=== PATIENT | male | born 1935 | race Caucasian/White ===

== ENCOUNTER → 2019-04-23 13:21 | Outpatient (CLI) | payer OTHER, SELFPAY ==
--- NOTE | 2019-04-23 | DI.ECHO.S_ITS ---
[place] [facility]---------+ [facility] +---------+ : : [address] : : : : [address] : : : : Phone: [phone]+ Echocardiogram Report + + :Name: JIAN PRABHAKAR Study Date: 04/23/2019 Height: 70 in : :[facility] Weight: 137 lb: : Gender: Male BSA: 1.8 m2 : :: 1935 Age: 83 yrs : :Reason For Study: CHRONIC AFIB : : Performed By: Tien Morelos : :Referring: BALWINDER HUGHES : + + Interpretation Summary 1) Normal left ventricular size with low normal function (EF 50-55%). 2) Apical wall motion abnormality may reflect pacemaker activation. 3) Mildly enlarged right ventricle with moderately reduced function. Pacemaker lead visualized in the right ventricle. 4) There is marked biatrial enlargement. Atria are much larger than ventricles. 5) There is severe tricuspid regurgitation. 6) There is mild to moderate mitral regurgitation. 7) There is a small right-sided pleural effusion. 8) No prior Echo available for comparison. Procedure: A two-dimensional transthoracic echocardiogram with color flow and Doppler was performed. The study quality was technically difficult. There is no prior echocardiogram noted for this patient. The patient has a paced rhythm. Left Ventricle: The left ventricle is normal in size. There is normal left ventricular wall thickness. The ejection fraction is estimated to be 50-55%. Apical wall motion abnormality may reflect pacemaker activation. Right Ventricle: The right ventricle is mildly dilated. There is a pacemaker lead in the right ventricle. Right ventricular systolic function is moderately reduced. Atria: There is marked biatrial enlargement. The interatrial septum is intact with no evidence for an atrial septal defect. Mitral Valve: The mitral valve is normal in structure and function. There is mild to moderate mitral regurgitation. Aortic Valve: The aortic valve is trileaflet. The aortic valve opens well. There is no aortic valve stenosis. There is mild aortic regurgitation. Tricuspid Valve: The tricuspid valve is normal in structure and function. There is severe tricuspid regurgitation. The right ventricular systolic pressure is estimated to be at least 37 mmHg based on an estimated right atrial pressure of 15 mm Hg. Pulmonic Valve: The pulmonic valve is normal in structure and function. There is trace pulmonic regurgitation. Great Vessels: The aortic root is normal size. The ascending aorta is at the upper limits of normal in size. The pulmonary artery is normal size. The IVC is dilated (diameter is greater than 2.1 cm) and it collapses less than 50% with a sniff. This suggests a high right atrial pressure of 15 mm Hg. Pericardium/ Pleura There is no pericardial effusion. There is a small right-sided pleural effusion. MMode/2D Measurements & Calculations LVIDd: 5.3 cm LVOT diam: 2.4 cm LVIDs: 3.6 cm Ao root diam: 4.0 cm FS: 31.8 % Aortic Jxn: 3.5 cm EPSS: 0.26 cm asc Aorta Diam: 3.7 cm IVSd: 0.90 cm Ao Arch Diam (Prox Trans): 2.9 cm LVPWd: 1.1 cm LV sotelo. diameter/BSA (cm/m^2): 3.0 LV sys. diameter/BSA (cm/m^2): 2.1 LA dimension: 9.8 cm RA long axis: 13.3 cm LA A2 area: 118.9 cm2 RA area: 137.2 cm2 LA A4 area: 92.8 cm2 RA vol: 1203 ml LA length (vol): 10.8 cm RA : 676.6 ml/m2 LA vol: 869.7 ml IVC diam: 4.3 cm LA vol index: 489.3 ml/m2 RVD1 (basal): 6.0 cm RVD2 (mid): 4.5 cm Doppler Measurements & Calculations Ao V2 max: 99.6 cm/sec LVOT Max Ez: 70.9 cm/sec Ao V2 mean: 72.4 cm/sec LV V1 max P.0 mmHg Ao max P.0 mmHg LV V1 VTI: 13.1 cm Ao mean P.3 mmHg WILMER(I,D): 3.3 cm2 Ao V2 VTI: 17.7 cm WILMER(V,D): 3.2 cm2 sev ratio: 0.74 WILMER indexed to BSA (cm^2/m^2): 1.9 AI P1/2t: 905.5 msec AI dec slope: 97.2 cm/sec2 MV E max ez: 73.5 cm/sec TR max ez: 231.6 cm/sec MV A max ez: 2.5 cm/sec TR max P.5 mmHg MV E/A: 29.9 PA V2 max: 46.7 cm/sec Med Peak E' Ez: 6.3 cm/sec PA V2 mean: 29.6 cm/sec E/E' med: 11.7 PA mean P.40 mmHg Lat Peak E' Ez: 12.3 cm/sec PA pr(Accel): 56.5 mmHg E/E' lat: 6.0 PA Accel Time: 0.06 sec E/e' average: 8.8 MV dec time: 0.13 sec SV(OT): 58.3 ml Reading Physician:04:21 PM
== END ==
PROVIDERS: Visit Provider Internal Medicine Cardiovascular Disease
DX: I08.3 Combined rheumatic disorders of mitral, aortic and tricuspid valves (principal); J90 Pleural effusion, not elsewhere classified; I48.2 Chronic atrial fibrillation; Z95.0 Presence of cardiac pacemaker
CPT/HCPCS: 93306

== ENCOUNTER 2019-06-09 17:18 | Inpatient (IN) | payer MEDICARE, OTHER, SELFPAY ==
[2019-06-09] VITALS (7 sets, daily range): BP systolic 96–115; BP diastolic 44–99; PULSE 51–104; RESP 16–26; TEMP 36.1; O2SAT 93–100
--- NOTE | 2019-06-09 17:31 | DI.RAD.S_ITS ---
PROCEDURE: XR CHEST 1V INDICATIONS: increasing weakness/fatigue TECHNIQUE: One view of the chest was acquired. COMPARISON: [facility], CR, XR CHEST 1 VIEW, 04/24/2019, 11:12. FINDINGS: Surgical changes and devices: A right chest wall pacemaker is redemonstrated with 2 leads projecting over the region of the right ventricle. There are 2 additional curvilinear wires projecting over the left hemithorax which appear similar to the prior study. Lungs and pleura: There is a small to moderate right pleural effusion with right basilar opacities consistent compressive atelectasis or consolidation. There also confluent left basilar opacities likely representing consolidation. No definite pneumothorax. Mediastinum: Mediastinal contours appear unchanged. Marked cardiomegaly is redemonstrated limiting evaluation of the lung bases. Bones and chest wall: No suspicious bony lesions. Overlying soft tissues appear unremarkable. IMPRESSION: 1. Small to moderate right pleural effusion with right basilar compressive atelectasis or consolidation. There is a suspected left basilar consolidation. 2. Marked cardiomegaly redemonstrated. 3. Right pacemaker and leads redemonstrated as well as curvilinear wires projecting over the left hemithorax of indeterminate etiology. Dictated by: Valdo Germain M.D. on 06/09/2019 at 18:33 Approved by: Valdo Germain M.D. on 06/09/2019 at 18:36
[2019-06-09 17:50] LABS: Hemoglobin 9.8 g/dL (13.5-17.5); Mean Corpuscular HGB Conc 32.7 % (30-36); Mean Corpuscular Hemoglobin 31.7 PG (26-34); Mean Corpuscular Volume 96.9 fL (80-100); Red Blood Cell Count 3.08 X10^6/uL (4.5-5.9); Red Cell Distribution Width 16.7 % (11.6-14.8); White Blood Cell Count 7.8 X10^3/uL (4.5-11.0)
[2019-06-09 17:55] LABS: Hematocrit 29.9 % (41-53); Platelet Count 58 X10^3/uL (150-400)
[2019-06-09 18:01] LABS: Alanine Aminotransferase 25 IU/L (21-72); Albumin 3.6 g/dL (3.5-5.0); Albumin Globulin Ratio 1.3 (1.0-2.8); Alkaline Phosphatase 57 U/L (38-126); Aspartate Aminotransferase 46 IU/L (17-59); BUN Creatinine Ratio 31.1 (6-22); Blood Urea Nitrogen 56 mg/dL (9-20); Calcium 8.9 mg/dL (8.4-10.2); Carbon Dioxide 23 mmol/L (22-32); Chloride 108 mmol/L (98-107); Creatine Kinase 195 U/L (55-170); Estimated Glomerular Filt Rate 36.1 mL/min (>60); Globulin 2.8 g/dL (1.7-4.1); Glucose 107 mg/dL (80-110); HEMOLYSIS < 15 (0-50); Potassium 4.7 mmol/L (3.4-5.1); Sodium 143 mmol/L (137-145); Total Protein 6.4 g/dL (6.3-8.2)
[2019-06-09 18:04] LABS: B Type Natriuretic Peptide 247 (<100)
[2019-06-09 18:12] LABS: Troponin I < 0.012 ng/mL (0.01-0.034)
[2019-06-09 18:13] LABS: Neutrophils Absolute Manual 6864 /uL (3000-5900); Total Cells Counted 100
[2019-06-09 18:14] LABS: Anisocytosis 1+; Ovalocytes 1+; Poikilocytosis 2+
--- NOTE | 2019-06-09 18:14 | ED.WEAKNESS ---
HPI - Weakness General Chief complaint: Weakness Stated complaint: Weakness, falls, skin tear R arm Time Seen by Provider: 06/09/19 18:14 Source: patient and EMS Mode of arrival: EMS Limitations: no limitations History of Present Illness HPI Narrative: The patient resides at [facility] , a [facility] [place]. I talked to his son, his son notes the patient seems to be going downhill rapidly.in [place], [place]. He is suffered multiple falls in recent days. He has 2 recent visits, in the last 3 days, at [facility] in [place], [place]. He has known arrhythmia, he has a pacemaker in place. He has history of hypertension, and CHF. I talked with son in [place], his son is POHeidi. His son is aware of the recent 2 visits. He describes his father as becoming progressively weak, seems to be going downhill rapidly.The gentleman has a POLST describing DNR with limited interventions. There will be no CPR or intubation. With recent falls seen at the hospital was admitted overnight for observation and IV hydration. It is felt dehydration contributing to his weakness. He has prior injuries to the left arm dressed at the [facility]. He has new injury to the right arm dressed at the care facility. He complains of left tibia pain. He denies head, neck or back injury. He has no dyspnea or chest pain at rest. He is not coughing. He has no abdominal complaints. He tells me he is too weak to stand. He has trouble sitting in the bed even with assistance. Evaluation at [facility] was extensive. He has undergone a negative head CT. Chest x-ray is consistent with extreme cardiomegaly. He has a pacer in place with multiple cut wires. It was noted that he has an elevated bilirubin. Abdominal ultrasound revealed gallstones, but no cholecystitis. Abdominal CT again displayed cholelithiasis without cholecystitis. It is noted that he has cirrhosis and mild ascites. On the abdominal CT cardiomegaly was again seen. Echo of his heart showed normal left ventricular function, but RV failure. He has no chest pain or dyspnea upon arrival here. He has no abdominal pain. He has no hematemesis her medications he. He has no history of GI bleeding. Related Data Home Medications Medication Instructions Recorded Confirmed acetaminophen 650 mg PO QID PRN 06/09/19 06/09/19 albuterol sulfate 2.5 mg INHALATION PRN PRN 06/09/19 06/09/19 cyanocobalamin (vitamin B-12) 1,000 mcg PO DAILY 06/09/19 06/09/19 [Vitamin B-12] fluoxetine 40 mg PO DAILY 06/09/19 06/09/19 food supplemt, lactose-reduced 1 ea PO TID 06/09/19 06/09/19 [Ensure] furosemide 20 mg PO DAILY 06/09/19 06/09/19 lactulose 10 g PO DAILY 06/09/19 06/09/19 metoprolol tartrate 25 mg PO BID 06/09/19 06/09/19 multivitamin with minerals 1 tab PO DAILY 06/09/19 06/09/19 potassium chloride 10 meq PO DAILY 06/09/19 06/09/19 quetiapine 25 mg PO QPM 06/09/19 06/09/19 tramadol 50 mg PO Q6H PRN 06/09/19 06/09/19 tramadol 100 mg PO Q6H PRN 06/09/19 06/09/19 Allergies Allergy/AdvReac Type Severity Reaction Status Date / Time morphine Allergy Verified 06/09/19 18:00 orange Allergy Verified 06/09/19 18:00 Review of Systems Constitutional Constitutional: Reports as per HPI, Denies chills, Denies fever(s), Reports lethargy and Reports weakness Eyes Eyes: Denies change in vision and Denies loss of vision ENT Ears, Nose, Mouth, and Throat: Denies change in voice, Denies vertigo, Denies dizziness, Denies neck pain, Denies sore throat and Denies throat swelling Cardiovascular Cardiovascular: Denies chest pain, Denies irregular heart rhythm, Denies lightheadedness, Denies palpitations, Denies dyspnea and Denies orthopnea Comments: Pacemaker in place Respiratory Respiratory: Denies cough, Denies dyspnea and Denies wheezing Gastrointestinal Gastrointestinal: Denies abdominal pain, Denies change in bowel habits, Denies diarrhea, Denies nausea and Denies vomiting Comments: No history of GI bleed Musculoskeletal Musculoskeletal: Denies back pain and Denies neck pain Comments: Multiple upper extremity injuries and recent falls. Left tibia pain. Integumentary/Breasts Skin/Breast: Denies pruritus, Denies erythema, Denies rash and Reports wounds (Multiple bruises and skin tears.) Neurologic Neurologic: Denies confusion, Denies vertigo, Denies dizziness, Denies loss of vision and Reports weakness Psychiatric Psychiatric: Denies anxiety, Denies confusion and Denies depression Endocrine Endocrine: Denies palpitations Hematologic/Lymphatic Hematologic/Lymphatic: Denies easy bleeding Allergic/Immunologic Allergic/Immunologic: Denies throat swelling and Denies wheezing [facility] Medical History Afib (Acute) Congestive heart failure (Acute) Hypertension (Acute) Pacemaker (Acute) Right ventricular failure (Acute) Weakness (Acute) Social History (Updated 06/09/19 @ 21:10 by Reginaldo Porter MD) additional social history: Resident at a local assisted living facility, [facility]. Exam Initial Vital Signs Initial Vital Signs: Vital Signs Temperature 96.9 F L 06/09/19 17:21 Pulse Rate 63 06/09/19 17:21 Respiratory Rate 22 06/09/19 17:21 Blood Pressure 115/99 H 06/09/19 17:21 Pulse Oximetry 94 06/09/19 17:21 Const General: No in distress, No anxious and frail appearing Nutritional Appearance: cachectic Orientation: alert, awake, oriented x3 and not confused HENPA Head: normocephalic and atraumatic Face and sinus: face symmetric and no sinus tenderness Mouth: oral mucosae normal and moist mucous membranes Throat: posterior oropharynx normal, tonsils normal and uvula midline Eyes General: appearance normal, both eyes and all related structures Eyelids: eyelids normal Conjunctivae: conjunctivae normal Sclera: sclerae normal Pupils: PERRL EOM: EOM intact bilaterally Neck Neck: supple, No tender and JVD (3 cm) Chest Chest: normal inspection of the chest, No crepitus, No tenderness and pacemaker (Right chest) Resp Effort & Inspection: normal respiratory effort, able to speak in complete sentences, no respiratory distress and no use of accessory muscles Auscultation: clear to auscultation bilaterally, no rales, no rhonchi and no wheezes Cardio Rate: regular rate Rhythm: regular rhythm Heart Sounds: no click, no gallops, no murmurs and no rubs Pulses: normal peripheral pulses GI Inspection: non-distended Palpation: soft, no hepatosplenomegaly, No guarding, No pulsatile mass and No tender Auscultation: normal bowel sounds Rectal Exam: normal sphincter tone, prostate normal and heme negative stool Back/Spine/Pelvis Back: No back tenderness Thoracic/Lumbar Spine: thoracic and lumbar spine normal to inspection Other: Multiple bruises of varying ages at varying sites across the back. No palpable defects or crepitus. Skin Other: Multiple contusions across his torso in both arms. He has multiple dressings on both arms from recent skin tears. Neuro General: alert, oriented x3 and gait normal Speech: speech normal Motor: other (Generalized weakness, no focal weakness.) Extrem General: full ROM, no clubbing, cyanosis or edema, no calf tenderness and edema (2+ bilateral lower extremity edema.) Other: Left proximal tibia tenderness without contusion, abrasion or palpable deformity. Normal dorsalis pedis pulses bilaterally. Course Course Course Narrative: Extensive records have been reviewed. Additional evaluation here is consistent with CHF, and right ventricular failure. Third exam at the came from a recumbent position to, to lying flat. The patient was breathing easily, with O2 sats 96-97% while recumbent. When he went flat he developed immediate difficulty breathing, with tachypnea, and his O2 sats decreased to 84% on room air. The hypoxia resolved when he went back to an upright position. Although his BNP is only mildly elevated, he clearly has right-sided CHF. IV Lasix was given. I discussed the situation with the patient's son, who is POA. He agrees to admission, and manage of the CHF. The patient has a DNR order. I discussed the situation with the hospitalist, FLAVIO Bravo. The patient be admitted, with a social science research assistant consult. Orders Ordered: ED Orders 06/09/19 17:30 B Type Natriuretic Peptide Stat Complete Blood Count MAN DIFF Stat Comprehensive Metabolic Panel Stat Influenza A and B by PCR Rapid Stat Procalcitonin Routine Troponin & CK Cardiac Panel Stat 06/09/19 17:31 XR chest 1V Stat 06/09/19 17:32 EKG-12 Lead Stat 06/09/19 17:33 Ammonia (NH3) Stat 06/09/19 17:38 Partial Thromboplastin Time Stat Prothrombin Time INR Stat 06/09/19 18:40 XR tibia fibula LT 2V Stat 06/09/19 20:37 Urine Microscopic Urgent Discontinued Medications Furosemide (Lasix) 40 mg IV NOW ONE Stop: 06/09/19 20:25 Last Admin: 06/09/19 20:42 Dose: 40 mg Documented by: EMI Vital Signs Vital signs: Vital Signs - 8 hr 06/09/19 17:21 06/09/19 18:00 06/09/19 18:33 Temperature 96.9 F L Pulse Rate 63 97 H 95 H Respiratory Rate 22 18 18 Blood Pressure 115/99 H Blood Pressure [Left Arm] 109/51 L 100/48 L Pulse Oximetry 94 100 100 06/09/19 19:30 06/09/19 20:00 Temperature Pulse Rate 51 L 104 H Respiratory Rate 18 16 Blood Pressure Blood Pressure [Left Arm] 96/44 L 112/50 L Pulse Oximetry 93 93 MDM - Weakness Lab Data Result diagrams: 06/09/19 17:30 06/09/19 17:30 Labs: Lab Results 06/09/19 06/09/19 06/09/19 Range/Units 17:30 17:30 17:30 WBC 7.8 (4.5-11.0) X10^3/uL RBC 3.08 L (4.5-5.9) X10^6/uL Hgb 9.8 L (13.5-17.5) g/dL Hct 29.9 L (41-53) % MCV 96.9 (80-100) fL MCH 31.7 (26-34) PG MCHC 32.7 (30-36) % RDW 16.7 H (11.6-14.8) % Plt Count 58 L (150-400) X10^3/uL Total Counted 100 Seg Neutrophils % 84.0 H (38-70) % Band Neutrophils % 4.0 (3-7) % Lymphocytes % (Manual) 4.0 L (25-45) % Atypical Lymphs % 2.0 H ( - 0) % Monocytes % (Manual) 6.0 (2-11) % Neutrophils # (Manual) 6864 H (5856-0438) /uL RBC Morphology See below Poikilocytosis 2+ H Anisocytosis 1+ H Ovalocytes 1+ H PT (10.1-12.7) SECONDS INR (0.9-1.3) APTT (26.4-36.2) SECONDS Sodium 143 (137-145) mmol/L Potassium 4.7 (3.4-5.1) mmol/L Chloride 108 H (98-107) mmol/L Carbon Dioxide 23 (22-32) mmol/L BUN 56 H (9-20) mg/dL Creatinine 1.80 H (0.66-1.25) mg/dL Estimated GFR 36.1 L (>60) mL/min BUN/Creatinine Ratio 31.1 H (6-22) Glucose 107 (80-110) mg/dL Calcium 8.9 (8.4-10.2) mg/dL Total Bilirubin 5.0 H (0.2-1.3) mg/dL AST 46 (17-59) IU/L ALT 25 (21-72) IU/L Alkaline Phosphatase 57 (38-126) U/L Ammonia (9-30) umol/L Total Creatine Kinase 195 H (55-170) U/L CK-MB (CK-2) 8.08 H (<2.37) ng/mL CK-MB (CK-2) Rel Index 4.1 (1.5-5.0) % Troponin I < 0.012 (0.01-0.034) ng/mL B-Natriuretic Peptide 247 H (<100) Total Protein 6.4 (6.3-8.2) g/dL Albumin 3.6 (3.5-5.0) g/dL Globulin 2.8 (1.7-4.1) g/dL Albumin/Globulin Ratio 1.3 (1.0-2.8) Procalcitonin (<0.5) ng/mL Influenza A & B (PCR) (Negative) 06/09/19 06/09/19 06/09/19 Range/Units 17:30 17:30 17:33 WBC (4.5-11.0) X10^3/uL RBC (4.5-5.9) X10^6/uL Hgb (13.5-17.5) g/dL Hct (41-53) % MCV (80-100) fL MCH (26-34) PG MCHC (30-36) % RDW (11.6-14.8) % Plt Count (150-400) X10^3/uL Total Counted Seg Neutrophils % (38-70) % Band Neutrophils % (3-7) % Lymphocytes % (Manual) (25-45) % Atypical Lymphs % ( - 0) % Monocytes % (Manual) (2-11) % Neutrophils # (Manual) (0711-4289) /uL RBC Morphology Poikilocytosis Anisocytosis Ovalocytes PT (10.1-12.7) SECONDS INR (0.9-1.3) APTT (26.4-36.2) SECONDS Sodium (137-145) mmol/L Potassium (3.4-5.1) mmol/L Chloride (98-107) mmol/L Carbon Dioxide (22-32) mmol/L BUN (9-20) mg/dL Creatinine (0.66-1.25) mg/dL Estimated GFR (>60) mL/min BUN/Creatinine Ratio (6-22) Glucose (80-110) mg/dL Calcium (8.4-10.2) mg/dL Total Bilirubin (0.2-1.3) mg/dL AST (17-59) IU/L ALT (21-72) IU/L Alkaline Phosphatase (38-126) U/L Ammonia 10.0 (9-30) umol/L Total Creatine Kinase (55-170) U/L CK-MB (CK-2) (<2.37) ng/mL CK-MB (CK-2) Rel Index (1.5-5.0) % Troponin I (0.01-0.034) ng/mL B-Natriuretic Peptide (<100) Total Protein (6.3-8.2) g/dL Albumin (3.5-5.0) g/dL Globulin (1.7-4.1) g/dL Albumin/Globulin Ratio (1.0-2.8) Procalcitonin 0.10 (<0.5) ng/mL Influenza A & B (PCR) Negative (Negative) 06/09/19 Range/Units 17:38 WBC (4.5-11.0) X10^3/uL RBC (4.5-5.9) X10^6/uL Hgb (13.5-17.5) g/dL Hct (41-53) % MCV (80-100) fL MCH (26-34) PG MCHC (30-36) % RDW (11.6-14.8) % Plt Count (150-400) X10^3/uL Total Counted Seg Neutrophils % (38-70) % Band Neutrophils % (3-7) % Lymphocytes % (Manual) (25-45) % Atypical Lymphs % ( - 0) % Monocytes % (Manual) (2-11) % Neutrophils # (Manual) (1301-4451) /uL RBC Morphology Poikilocytosis Anisocytosis Ovalocytes PT 17.1 H (10.1-12.7) SECONDS INR 1.5 H (0.9-1.3) APTT 34 (26.4-36.2) SECONDS Sodium (137-145) mmol/L Potassium (3.4-5.1) mmol/L Chloride (98-107) mmol/L Carbon Dioxide (22-32) mmol/L BUN (9-20) mg/dL Creatinine (0.66-1.25) mg/dL Estimated GFR (>60) mL/min BUN/Creatinine Ratio (6-22) Glucose (80-110) mg/dL Calcium (8.4-10.2) mg/dL Total Bilirubin (0.2-1.3) mg/dL AST (17-59) IU/L ALT (21-72) IU/L Alkaline Phosphatase (38-126) U/L Ammonia (9-30) umol/L Total Creatine Kinase (55-170) U/L CK-MB (CK-2) (<2.37) ng/mL CK-MB (CK-2) Rel Index (1.5-5.0) % Troponin I (0.01-0.034) ng/mL B-Natriuretic Peptide (<100) Total Protein (6.3-8.2) g/dL Albumin (3.5-5.0) g/dL Globulin (1.7-4.1) g/dL Albumin/Globulin Ratio (1.0-2.8) Procalcitonin (<0.5) ng/mL Influenza A & B (PCR) (Negative) Imaging Data Chest x-ray: Radiologist's impression: [address] [address] XRay Report Signed Patient: Hedy Lan#: [id number] : 5Acct:[id number] Age/Sex: 84 / MDate of Service: 06/09/19 Loc: ED Accession Number: [id number] Procedure: XR chest 1V Ordering Provider: Kelli Lacey D.O. PROCEDURE: XR CHEST 1V INDICATIONS: increasing weakness/fatigue TECHNIQUE: One view of the chest was acquired. COMPARISON: [facility], CR, XR CHEST 1 VIEW, 04/24/2019, 11:12. FINDINGS: Surgical changes and devices: A right chest wall pacemaker is redemonstrated with 2 leads projecting over the region of the right ventricle. There are 2 additional curvilinear wires projecting over the left hemithorax which appear similar to the prior study. Lungs and pleura: There is a small to moderate right pleural effusion with right basilar opacities consistent compressive atelectasis or consolidation. There also confluent left basilar opacities likely representing consolidation. No definite pneumothorax. Mediastinum: Mediastinal contours appear unchanged. Marked cardiomegaly is redemonstrated limiting evaluation of the lung bases. Bones and chest wall: No suspicious bony lesions. Overlying soft tissues appear unremarkable. IMPRESSION: 1. Small to moderate right pleural effusion with right basilar compressive atelectasis or consolidation. There is a suspected left basilar consolidation. 2. Marked cardiomegaly redemonstrated. 3. Right pacemaker and leads redemonstrated as well as curvilinear wires projecting over the left hemithorax of indeterminate etiology. Dictated by: Valdo Germain M.D. on 06/09/2019 at 18:33 Approved by: Valdo eGrmain M.D. on 06/09/2019 at 18:36 Left tib-fib x-ray:: Radiologist's impression: 45 Reginaldo Porter MD Find Patient Imaging - Edson Lan 84 M 1935 ACTIVITY DATE EXAM STATUS AUTHOR 06/09/19 18:40 Signed Valdo Germain 06/09/19 17:[address] [address] XRay Report Signed Patient: Hedy Lan#: [id number] : 5Acct:[id number] Age/Sex: 84 / MDate of Service: 06/09/19 Loc: ED Accession Number: [id number] Procedure: XR tibia fibula LT 2V Ordering Provider: Reginaldo Porter MD PROCEDURE: XR TIBIA FIBULA RT 2V INDICATIONS: Fall. Left proximal tibia pain. TECHNIQUE: 2 views of the tibia and fibula were acquired. COMPARISON: None. FINDINGS: Bones: No fractures or dislocations. No suspicious bony lesions. Soft tissues: No suspicious soft tissue calcifications or masses. IMPRESSION: 1. No fracture or dislocation. Dictated by: Valdo Germain M.D. on 06/09/2019 at 20:22 Approved by: Valdo Germain M.D. on 06/09/2019 at 20:22 ECG Data Attestation: I personally reviewed and interpreted this ECG as follows: (Paced rhythm rate 59 beats per minute. No acute ST T wave changes. No other significant findings.) Critical Care Time Critical Care Time Critical Care Time: Yes Total Critical Care Time: 40 Attestation: Critical care time included initial evaluation of patient, phone consultation with his son who is POA, review is multiple past records, clinical decision making, and consultation with the admitting hospitalist. Discharge Plan Departure Patient Disposition: Admitted As Inpatient Clinical Impression: Right ventricular failure, Weakness Congestive heart failure Qualifiers: Heart failure type: right-sided Heart failure chronicity: acute on chronic Qualified Code(s): I50.813 - Acute on chronic right heart failure Admit Date/Time: 06/09/19 20:49 Admit Provider: Chester Bravo
[2019-06-09 18:16] LABS: CKMB % Relative Index 4.1 % (1.5-5.0); Creatine Kinase MB 8.08 ng/mL (<2.37)
[2019-06-09 18:27] LABS: Influenza A and B by PCR Rapid Negative (Negative)
--- NOTE | 2019-06-09 18:40 | DI.RAD.S_ITS ---
PROCEDURE: XR TIBIA FIBULA RT 2V INDICATIONS: Fall. Left proximal tibia pain. TECHNIQUE: 2 views of the tibia and fibula were acquired. COMPARISON: None. FINDINGS: Bones: No fractures or dislocations. No suspicious bony lesions. Soft tissues: No suspicious soft tissue calcifications or masses. IMPRESSION: 1. No fracture or dislocation. Dictated by: Valdo Germain M.D. on 06/09/2019 at 20:22 Approved by: Valdo Germain M.D. on 06/09/2019 at 20:22
[2019-06-09 18:52] LABS: INR 1.5 (0.9-1.3); Prothrombin Time 17.1 SECONDS (10.1-12.7)
[2019-06-09 18:54] LABS: PTT Partial Thromboplastin Tim 34 SECONDS (26.4-36.2)
[2019-06-09] MEDS: FUROSEMIDE 40 MG/4 ML VIAL IV (20:42)
[2019-06-09 21:21] LABS: Bacteria Urine None Seen
[2019-06-09 21:31] LABS: Appearance Urine UA CLEAR; Bilirubin Urine UA NEGATIVE (NEGATIVE); Color Urine UA YELLOW; Glucose Urine UA NEGATIVE (Negative); Ketones Urine UA NEGATIVE (NEGATIVE); Leukocyte Esterase Urine UA TRACE (NEGATIVE); Nitrite Urine UA NEGATIVE (Negative); Occult Blood Urine UA NEGATIVE (Negative); Protein Urine UA TRACE (Negative); Specific Gravity Urine UA <=1.005 (1.000-1.035); Urobilinogen Urine UA 0.2 E.U./dL (0.2)
--- NOTE | 2019-06-09 21:32 | PM.HP.1 ---
History of Present Illness History of Present Illness Date Patient Seen: 06/09/19 Time Patient Seen: 20:33 Chief complaint: Weakness, falls, skin tear R arm Narrative: Mr. Edson Lan is an 84-year-old gentleman with a history significant for atrial fibrillation, permanent pacemaker implantation, congestive heart failure, hypertension, liver cirrhosis, dementia, nephrolithiasis and cholelithiasis, depression with anxiety and PTSD and chronic fatigue who presents to the ER for recurrent falls and generalized weakness and inability to stand. The patient was previously seen at [facility] on 06/05/2019 and again on 06/07/2019 for similar complaint. Each time the patient was discharged home having undergone an aggressive investigation including a CT of the head, CT of the abdomen and pelvis, abdominal ultrasound and Doppler studies of the right upper extremity and the right lower extremity to rule out DVT and was subsequently discharged back to [facility]. At the time of exam the patient is somnolent and not able to provide only limited information. He denies headaches or dizziness, neck or back pain. Reports no chest pain or palpitations though he has a history of atrial fibrillation. He tells me has no shortness of breath or cough. He denies complaints of abdominal pain, nausea vomiting. He cannot tell me when he last moved his bowels. At baseline the patient is able to ambulate with a cane or walker and now reports he is unable to stand that his legs give out. On upon arrival to ER patient is found to be afebrile with temperature 96.9?, heart rate of 63 in a paced rhythm, blood pressure 115/99, respiratory rate of 22 saturating 94% on room air. Repeat imaging was not completed at [facility]: -CT head: 06/07/2019 finds no acute intracranial findings, cerebral atrophy and chronic microvascular ischemic changes. -CT of the abdomen and pelvis: 06/07/2019 moderate right small left pleural effusions with cardiomegaly a and severe dilation of the right and left atria, distension of the inferior vena cava and hepatic veins consistent with right heart failure, several stones within the gallbladder without evidence of acute cholecystitis or ductal obstruction, mild ascites, right nephrolithiasis, multiple hyperdense left renal cysts consistent with hemorrhagic excess no bowel obstruction, -US abdomen, right upper quadrant: 06/05/2019 nodular liver with echogenic parenchyma suggestive of cirrhosis measuring 16.9 cm, cholelithiasis without evidence of acute cholecystitis, no biliary dilatation, small ascites. -echocardiogram: 06/06/2019 LV function is described as normal with an EF of 55-60%, severe right ventricular enlargement, severe increased in left atrial volume index, severe right atrial enlargement, severe tricuspid regurgitation, moderately abnormal heart pressures. Laboratory analysis obtained today includes a white count of 7.8, hemoglobin of 9.8, hematocrit of 29.9 and platelets 58. Electrolytes within normal range however has BUN of 56 and creatinine of 1.8 (creatinine 1.7 on evaluation 3 days ago), EGFR is 36.1. His liver functions include a bilirubin of 5.0, AST of 46, ALT of 25 and a P of 57. He had a total CK of 195 with CK-MB of 4.1 with an index of 4.1 and a negative troponin at less than 0.012 and BNP is 247. His PT is 17.1 with an INR 1.5 with an APTT of 34. Stool guaiac is negative for blood. His 12 lead EKG demonstrates paced rhythm and his chest x-ray finds severe cardiomyopathy with right pleural effusion and right basilar opacity possible atelectasis versus consolidation. The a for mention findings are improvement over prior echo completed 04/23/2019 reporting an EF of 50-55%. Dr. Porter notes When he went flat he developed immediate difficulty breathing, with tachypnea, and his O2 sats decreased to 84% on room air. The hypoxia resolved when he went back to an upright position. Additional testing including procalcitonin and urinalysis are ordered and the patient is admitted to the hospital generalized weakness and exacerbation congestive heart failure. Patient History Medical History (Updated 06/09/19 @ 22:32 by FLAVIO Paul) Afib (Acute) Cholelithiasis (Acute) Chronic back pain (Acute) Cirrhosis (Acute) Congestive heart failure (Acute) Dementia (Acute) Depression with anxiety (Acute) Hiatal hernia (Acute) History of pacemaker (Acute) Hypertension (Acute) Nephrolithiasis (Acute) Pacemaker (Acute) PTSD (post-traumatic stress disorder) (Acute) Right ventricular failure (Acute) Weakness (Acute) Surgical History (Updated 06/09/19 @ 22:32 by FLAVIO Paul) History of appendectomy (Acute) History of cardiac catheterization (Acute) History of colonoscopy (Acute) History of repair of hiatal hernia (Acute) Family History Father Cancer Mother No problems noted. Social History (Updated 06/09/19 @ 21:10 by Reginaldo Porter MD) additional social history: Resident at a local assisted living facility, [facility]. Family & Social History Family History Father Cancer Mother No problems noted. Comment: The patient resides in [facility], an assisted living facility. The patient is single. Scant information is available due to patient's somnolence. He is able to indicate his father of cancer and his mother of old age. Smoking: The patient quit smoking in 1956 before which she was smoking 1/4 to 1/2 pack per day. Alcohol: Past alcohol consumption quitting 10 years ago. Substance use: The patient denies use of cannabis or herbal products. Advanced directives: The patient has a POLST form which identifies the patient to be DO NOT RESUSCITATE/DO NOT INTUBATE with limited interventions. The patient's son also named Nilesh Lan holds DPOA Meds Home Medications and Allergies Home Medications Medication Instructions Recorded Confirmed Type acetaminophen 650 mg PO QID PRN 06/09/19 06/09/19 History albuterol sulfate 2.5 mg INHALATION PRN PRN 06/09/19 06/09/19 History cyanocobalamin (vitamin B-12) 1,000 mcg PO DAILY 06/09/19 06/09/19 History [Vitamin B-12] fluoxetine 40 mg PO DAILY 06/09/19 06/09/19 History food supplemt, lactose-reduced 1 ea PO TID 06/09/19 06/09/19 History [Ensure] furosemide 20 mg PO DAILY 06/09/19 06/09/19 History lactulose 10 g PO DAILY 06/09/19 06/09/19 History metoprolol tartrate 25 mg PO BID 06/09/19 06/09/19 History multivitamin with minerals 1 tab PO DAILY 06/09/19 06/09/19 History potassium chloride 10 meq PO DAILY 06/09/19 06/09/19 History quetiapine 25 mg PO QPM 06/09/19 06/09/19 History tramadol 50 mg PO Q6H PRN 06/09/19 06/09/19 History tramadol 100 mg PO Q6H PRN 06/09/19 06/09/19 History Allergies Allergy/AdvReac Type Severity Reaction Status Date / Time morphine Allergy Verified 06/09/19 18:00 orange Allergy Verified 06/09/19 18:00 Review of Systems Review of Systems ROS Unobtainable: All systems reviewed & are unremarkable except as noted in HPI and below and unobtainable due to mental condition (Information limited related to patient's somnolence) Exam Vital Signs (past 8 hours): - 06/09/19 17:21 06/09/19 18:00 06/09/19 18:33 Temperature 96.9 F L Pulse Rate 63 97 H 95 H Respiratory Rate 22 18 18 Blood Pressure 115/99 H Blood Pressure [Left Arm] 109/51 L 100/48 L Pulse Oximetry 94 100 100 06/09/19 19:30 06/09/19 20:00 Temperature Pulse Rate 51 L 104 H Respiratory Rate 18 16 Blood Pressure Blood Pressure [Left Arm] 96/44 L 112/50 L Pulse Oximetry 93 93 Oxygen Delivery Method Room Air Narrative Exam Narrative: GENERAL APPEARANCE: well developed, well nourished, in no acute distress. HEENT: Normocephalic, PERRLA, conjunctiva clear, EOMs intact without nystagmus, no sinus tenderness to percussion, no rhinorrhea, mucous membranes are moist and pink without lesions or exudate. NECK/THYROID: neck supple, no JVD, no carotid bruit, trachea midline. LYMPH NODES: no cervical or supraclavicular lymphadenopathy. SKIN: warm and dry, multiple contusions, skin tear left arm, psoriatic lesions left evangelical, venous stasis dermatitis bilateral lower extremities, no ulcerations or petechiae. HEART: regular rate and rhythm, S1-S2, 3/6 systolic murmur, delayed capillary refill bilateral lower extremities, 1+ edema LUNGS: Diminished breath sounds overall right base, no coarseness crackles or wheezing, no cough present CHEST: Pacemaker left chest, symmetrical movement, shallow respirations no accessory muscle use, no pain to AP and lateral compression. ABDOMEN: Soft, no distention, no abdominal tenderness, no guarding or peritoneal signs, no organomegaly, no flank or suprapubic tenderness, active bowel tones. BACK: Normal curvature, nontender to palpation, no CVA tenderness on percussion EXTREMITIES: moves all extremities, BUE strength is 4/5, BLE strength is 3/5 and symmetrical, no deformities or joint effusions, cold feet, dusky toes. NEUROLOGIC: Patient is somnolent, GCS 13, requires consistent stimulation to remain awake and respond to questions, no sensory deficits identified, hearing grossly normal to speech. PSYCH: Somnolent, will focus on speaker when awake, flat affect, short answer responses Objective Labs Result Diagrams: 06/09/19 17:30 06/09/19 17:30 Labs: Laboratory Results - last 24 hr 06/09/19 06/09/19 06/09/19 17:30 17:30 17:30 WBC 7.8 RBC 3.08 L Hgb 9.8 L Hct 29.9 L MCV 96.9 MCH 31.7 MCHC 32.7 RDW 16.7 H Plt Count 58 L Total Counted 100 Seg Neutrophils % 84.0 H Band Neutrophils % 4.0 Lymphocytes % (Manual) 4.0 L Atypical Lymphs % 2.0 H Monocytes % (Manual) 6.0 Neutrophils # (Manual) 6864 H RBC Morphology See below Poikilocytosis 2+ H Anisocytosis 1+ H Ovalocytes 1+ H PT INR APTT Sodium 143 Potassium 4.7 Chloride 108 H Carbon Dioxide 23 BUN 56 H Creatinine 1.80 H Estimated GFR 36.1 L BUN/Creatinine Ratio 31.1 H Glucose 107 Calcium 8.9 Total Bilirubin 5.0 H AST 46 ALT 25 Alkaline Phosphatase 57 Ammonia Total Creatine Kinase 195 H CK-MB (CK-2) 8.08 H CK-MB (CK-2) Rel Index 4.1 Troponin I < 0.012 B-Natriuretic Peptide 247 H Total Protein 6.4 Albumin 3.6 Globulin 2.8 Albumin/Globulin Ratio 1.3 Procalcitonin Influenza A & B (PCR) 06/09/19 06/09/19 06/09/19 17:30 17:30 17:33 WBC RBC Hgb Hct MCV MCH MCHC RDW Plt Count Total Counted Seg Neutrophils % Band Neutrophils % Lymphocytes % (Manual) Atypical Lymphs % Monocytes % (Manual) Neutrophils # (Manual) RBC Morphology Poikilocytosis Anisocytosis Ovalocytes PT INR APTT Sodium Potassium Chloride Carbon Dioxide BUN Creatinine Estimated GFR BUN/Creatinine Ratio Glucose Calcium Total Bilirubin AST ALT Alkaline Phosphatase Ammonia 10.0 Total Creatine Kinase CK-MB (CK-2) CK-MB (CK-2) Rel Index Troponin I B-Natriuretic Peptide Total Protein Albumin Globulin Albumin/Globulin Ratio Procalcitonin 0.10 Influenza A & B (PCR) Negative 06/09/19 17:38 WBC RBC Hgb Hct MCV MCH MCHC RDW Plt Count Total Counted Seg Neutrophils % Band Neutrophils % Lymphocytes % (Manual) Atypical Lymphs % Monocytes % (Manual) Neutrophils # (Manual) RBC Morphology Poikilocytosis Anisocytosis Ovalocytes PT 17.1 H INR 1.5 H APTT 34 Sodium Potassium Chloride Carbon Dioxide BUN Creatinine Estimated GFR BUN/Creatinine Ratio Glucose Calcium Total Bilirubin AST ALT Alkaline Phosphatase Ammonia Total Creatine Kinase CK-MB (CK-2) CK-MB (CK-2) Rel Index Troponin I B-Natriuretic Peptide Total Protein Albumin Globulin Albumin/Globulin Ratio Procalcitonin Influenza A & B (PCR) Assessment & Plan Assessment & Plan narrative: Mr. Lan is an 84-year-old male in deteriorating health related to end-stage liver disease and congestive heart failure who now presents with hepatic renal syndrome. The patient's son also named Nilesh Lan who holds DPOA had spoken earlier with Dr. Porter is called regarding goals of care. Noted the patient's deconditioned state with protein malnutrition, hypotension in the setting of cirrhosis and renal failure. The son is aware of the patient's rapid decline. Discussed the patient's prognosis is grim and discussed his wishes for treatment. The patient is already designated DNR DNI with limited interventions. This clarified further as IV fluids nutrition and noninvasive ventilation but no vasopressors. Recommended hospice S the patient is unable to return to his prior living setting to which he agrees. 1. End-stage liver disease, cirrhosis, chronic, present on admission, active. -cachectic and protein malnourished, ascites noted on ultrasound with nodular liver with echogenic parenchyma. -patient with elevated bilirubin at 5.0, AST 46, ALT 25 and alkaline phosphatase 57. Ammonia level is 10. Albumin is 3.6. -coagulopathic with an INR 1.5 on no anticoagulants, no evidence of bleeding. -MELD score 23, the patient is referred to hospice for evaluation. -continue lactulose 10 g daily 2. Hepatorenal syndrome, presumed acute, present on admission, active -patient presents with renal failure with a BUN of 56 and creatinine of 1.8, random urine sodium is 9. Creatinine 3 days ago was 1.7 no other values available for comparison. -no infective process, abdomen is nontender with procalcitonin of 0.10, EF 55-60% by echocardiogram with pressures in the 100s to 110s systolic. -only potential nephro toxic drug is furosemide 20 mg daily, necessary for manage of congestive failure. -the patient received 40 mg of Lasix in the ER, with decrease in blood pressure. -Will recheck BMP in the morning 3. Congestive heart failure, chronic, per present on admission, active -on initial presentation the patient had respiratory rate of 22 saturating 94%, at time of exam respiratory rate was 16 saturating 96% on room air. -severe cardiomegaly a with right heart failure noted on imaging studies, unable to aggressively diurese related to BP in the setting of reduced SVR. -patient with significant orthopnea demonstrated in the ER when laid flat for exam and decrease of oxygen saturation 84%, returned back to 90s upon sitting up. -moderate right pleural effusion. -will keep head of bed elevated. -continue Lasix 20 mg twice daily. 4. Atrial fibrillation, chronic, present on admission, stable. -no complaints of chest pain or subjective shortness of breath. -patient has a permanent pacemaker, currently on 100% ventricular paced rhythm. -continue rate control with metoprolol tartrate 25 mg twice daily. 5. Dementia, chronic, present on admission, active -CT finds microvascular ischemic changes consistent with vascular dementia. -patient is somnolent with a GCS of 13, will hold nighttime quetiapine. -continue fluoxetine 40 mg daily. 6. Protein malnourishment, chronic, present on admission. -patient appears cachectic with loss of muscle mass. -no comparison for patient weights. 1+ bilateral lower extremity edema, BMI estimated to be 22.59. -dietitian to consult. 7. Generalized weakness, present on admission, active -presenting complaint of weakness and recurrent falls. -patient reports inability to stand and typically able to ambulate with a cane or walker. -PT and OT to evaluate and treat. The patient is admitted to the hospital due to severity of his symptoms and capacity for self-care, risk for complications and adverse events. The patient is admitted as an inpatient with expected length of stay to be greater than 2 midnights. Scores GCS Marti coma scale eye opening: To sound Marti coma scale verbal response: Confused Pierce coma scale motor response: Obey commands Marti coma scale total score: 13
[2019-06-09 21:36] LABS: Culture Indicated Urine Specimen Cultured; RBC Urine 0-1/HPF (0-5/HPF); WBC Urine 0-1/HPF (0-5/HPF)
[2019-06-09 21:41] LABS: Sodium Urine Random 9 mmol/L (30-90)
[2019-06-09 21:42] LABS: Magnesium 2.3 mg/dL (1.6-2.3)
[2019-06-10] VITALS (9 sets, daily range): BP systolic 102–119; BP diastolic 56–70; PULSE 61–70; RESP 16–20; TEMP 35.9–36.6; O2SAT 91–100; BMI 27.1; BMI 25.9
[2019-06-10] MEDS: ACETAMINOPHEN 325 MG TABLET 650 MG PO (00:58)
[2019-06-10] MEDS: TRAMADOL 50 MG TABLET PO (00:59)
[2019-06-10 05:25] LABS: BUN Creatinine Ratio 29.5 (6-22); Blood Urea Nitrogen 59 mg/dL (9-20); Carbon Dioxide 25 mmol/L (22-32); Chloride 107 mmol/L (98-107); Glucose 105 mg/dL (80-110); HEMOLYSIS < 15 (0-50); Potassium 4.8 mmol/L (3.4-5.1); Sodium 141 mmol/L (137-145)
--- NOTE | 2019-06-10 05:29 | PC.NURSE ---
Addendum entered by Anabelle Quintanilla R.N. 06/10/19 06:54: 0645, pt titrated o2 to 2L NC as desat on room air to 87%, pt con't to deny SOB. HOB remains elevated to 30 degrees. Original Note: Pt arrived to floor at 0030. Mild dementia, A&O x2-3, unaware of date, thought is was 1979. Able to give name, birthdate. Pt reports pain in left leg, xray negative for fracture. Reports chronic pain in back. Rates both 02/16. Ultram 50mg given x1. Pt with altered circulation, ejection fraction of 55%. hx Aib, CHF, pacemaker, HTN, severe tricuspid regurgitation, atrial enlargement. Bilat feet mottled, cool, 1+ bilat feet edema. Denies chest pain. Pt with multiple skin tears, covered with telfa. Mult bruises on body. Pt with recent falls at SNF, my legs give out. Hepatorenal syndrome presenting with renal failure, pt with mild cirrohosis, slight jaundice appearance. Abd with min. distention. Denies abd pain. Denies nausea. Denies SOB, on Cpox, sats 94% room air. Cxray reveals right pl effusion. Pt needs HOB elevtated as pt is orthopniec. Pt with cough while taking sips of water. Giving pills with applesauce. Refused SCDs, provider notified. On Qday lasix, monitor BPs, no UOP overnight, provider aware.
[2019-06-10] MEDS: FLUoxetine 20 MG CAPSULE 40 MG PO (08:40)
[2019-06-10] MEDS: LACTULOSE 20 GM/30 ML SOLUTION 10 GM PO (08:48)
[2019-06-10] MEDS: HEPARIN 5,000 UNIT/ML VIAL 5000 UNIT SUBCUT (08:51)
[2019-06-10 10:34] LABS: Bacteria Urine None Seen
[2019-06-10 10:39] LABS: Appearance Urine UA CLEAR; Bilirubin Urine UA NEGATIVE (NEGATIVE); Color Urine UA YELLOW; Glucose Urine UA NEGATIVE (Negative); Ketones Urine UA NEGATIVE (NEGATIVE); Leukocyte Esterase Urine UA TRACE (NEGATIVE); Nitrite Urine UA NEGATIVE (Negative); Occult Blood Urine UA NEGATIVE (Negative); Protein Urine UA NEGATIVE (Negative); Specific Gravity Urine UA <=1.005 (1.000-1.035); Urobilinogen Urine UA 0.2 E.U./dL (0.2)
--- NOTE | 2019-06-10 10:54 | OT.IP.EVAL ---
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) Weakness (06/09/19) Past Medical History (Last Updated 06/09/19 @ 22:32 by FLAVIO Paul) Afib (Acute) Cholelithiasis (Acute) Chronic back pain (Acute) Cirrhosis (Acute) Congestive heart failure (Acute) Dementia (Acute) Depression with anxiety (Acute) Hiatal hernia (Acute) History of pacemaker (Acute) Hypertension (Acute) Nephrolithiasis (Acute) Pacemaker (Acute) PTSD (post-traumatic stress disorder) (Acute) Right ventricular failure (Acute) Weakness (Acute) Surgical History (Last Updated 06/09/19 @ 22:32 by FLAVIO Paul) History of appendectomy (Acute) History of cardiac catheterization (Acute) History of colonoscopy (Acute) History of repair of hiatal hernia (Acute) Occupational Therapy Inpatient Evaluation/Re-Eval M1 PT/OT-IP Prior Functional Status Start: 06/10/19 12:22 Freq: NEEDED Status: Active Protocol: Document 06/10/19 11:00 AB (Rec: 06/10/19 12:44 AB [id number]) Medical Review Prior Functional Status Medical History Reviewed Yes Communication able to make needs known Mobility and Gait Pt states that he is modified independent with ambulation without AD but occasionally uses either a SPC or a FWW. Self Care Pt states he was indep with eating, grooming, dressing, toileting. Per case managers notes, he had assist with showers, meds. His son assists with finances. Social History Living Arrangements Assisted Living Number of Floors (Floors) One Floor Number of Stairs To Enter/Railing? 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 O2 sats in high 80's to low to mid 90's. Occupational Therapy Visit Comments Patient Comments I just don't have any energy to do anything. OT Pain Assessment FLACC Pain Scale Face Occasional grimace/frown Legs Normal position; relaxed Activity Quiet, moves easily Cry No cry (awake or asleep) Consolability Reassurable with touch FLACC Total 2 Location Left Leg Scale Used see FLACC pain scale M4 OT- IP ADL's Start: 06/10/19 10:09 Freq: Status: Active Protocol: Document 06/10/19 10:54 PJM (Rec: 06/10/19 13:31 PJM [id number]) OT TLX-Ovtd-Crhufyc General Evaluation Self-Feeding Ability Independent Areas Needing Assistance Opening Containers Comments OT Self-Feeding Comments pt states he is vegetarian OT ADL-Grooming General Evaluation Grooming Ability Standby Assistance,Moderate Assistance Areas Needing Assistance Face Washing Comments OT Grooming Comments SBA for face washing, mod assist to brush long hair for thoroughness OT ADL-Oral Care Comments Oral Care Comments pt declined due to fatigue from previous activity OT ADL-Dressing General Eval Upper Body Dressing Ability Moderate Assistance Lower Body Dressing Ability Total Assistance Comments OT Dressing Comments mod assist with gown change due to multiple lines OT ADL-Toileting General Evaluation Toileting Ability Minimal Assistance Devices Toileting Assistive Devices Urinal Comments OT Toileting Comments seated EOB with student RN OT ADL-Bathing Bathing Type Bathing Type Bed Bath General Evaluation Bathing Ability Total Assistance M5 OT- IP IADL's Start: 06/10/19 10:09 Freq: Status: Active Protocol: Document 06/10/19 10:54 PJM (Rec: 06/10/19 13:31 [facility] [id number]) OT-Instrumental Activities of Daily Living Deficits IADL Deficits Identified Deficits Home Safety Awareness Awareness of Need for Assistance at Home Decreased Awareness Ability to Problem Solve Emergency Unable to Problem Solve Situations Medication Management Medication Management Caregiver Administers Medication Management Comments caregivers at [facility] assist Money Management Money Management Caregiver Provides Assistance Money Management Comments son assists Meal Preparation Meal Preparation Caregiver Provides Assist Meal Preparation Comments 3 meals/day provided although pt states he does not attend all meals as he doesn't like the food Product Management Intern Product Management Intern Caregiver Provides Assist Driving Driving Comments pt no longer drives M6 OT- IP Functional Cognition Start: 06/10/19 10:09 Freq: Status: Active Protocol: Document 06/10/19 10:54 PJEva (Rec: 06/10/19 13:31 [facility] [id number]) Cognitive Factors Limiting Selfcare Function Cognitive Ability Level of Alertness Alert Patient Orientation Name Attention Span Ability Capable of Focused Attention, Unable to Sustain Attention Ability to Follow Commands Able to Follow One Step Commands with Increased Time, Able to Follow One Step Commands with Repetition Memory Description Short Term Impaired Safety Awareness Decreased Recall of Precautions,Decreased Ability to Apply Precautions Problem Solving Ability Unable to Identify Errors, Needs Assist to Identify Solutions Executive Function Ability Unable to Make Plans,Unable to Organize Plans,Unable to Remember Details,Unable to Integrate Past Experience With Present Action Abstract Thinking Ability Unable to Make Generalizations ,Unable to Draw Logical Conclusions,Unable to Be Adaptable in Thinking,Unable to Apply Concepts to New Surroundings Cognitive Comments Cognitive Assessment Comments Pt has dx of dementia. OT- Vision and Hearing OT- Hearing Assessment OT- Hearing Assessment WFL OT- Vision Assessment Visual Acuity Glasses For Reading Visual Attentiveness WF Vision Assessment Comments Pt able to read wall clock without glasses. M7 OT- IP Mobility and Balance Start: 06/10/19 10:09 Freq: Status: Active Protocol: Document 06/10/19 10:54 PJEva (Rec: 06/10/19 13:31 [facility] [id number]) OT- Bed Mobility Assessment Scooting Scooting Up and Down in Bed Total Assistance,2 Person Assistance OT-Transfer Assessment Comments Mobility Comments pt just back to bed when therapist arrived; see P.T. notes OT- Gait Assessment Comments Gait Ability Comments pt non ambulatory at present OT- Balance Assessment Comments Other Balance Tests/Deviations/Treatment see P.T. notes : M8 OT- IP Objective Assessments Start: 06/10/19 10:09 Freq: Status: Active Protocol: Document 06/10/19 10:54 PJM (Rec: 06/10/19 13:31 PJM [id number]) OT Gross Range of Motion Upper Extremity Range of Motion Assessment Within Functional Limits OT Strength Upper Extremity Strength Assessment Bilaterally Impaired Hand [employer] Strength Hand Dominance Right Comments Strength Comments strength 4-/5 throughout BUE OT- Coordination Assessment Comments Coordination Comments BUE WFL for basic self care OT-Muscle Tone Assessment Muscle Tone WNL Yes OT Sensation Assessment Comments Summary Comments Pt detects lt touch in BUE's; denies deficits Edema Edema Present Edema Comments L elbow and posterior upper arm swollen M9 OT- IP Assessment and Plan Start: 06/10/19 10:09 Freq: Status: Active Protocol: Document 06/10/19 10:54 PJM (Rec: 06/10/19 13:31 PJM [id number]) OT Summary Assessment and Plan Potential Rehabilitation Potential Fair Analytic Complexity at Evaluation Low Summary OT Impairments Pain,Strength,Balance, Functional Cognition, Functional Mobility,Grooming, Dressing,Toileting,Bathing, Toilet Transfers,Shower Transfers Assessment Summary Low complexity OT assessment completed on this 84 yr old male admitted after multiple falls at his [facility]. Pt had visits to [facility] ED on 06/05 and 06/07/19, then admitted to [facility] . 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 Pt presents today with very low activity tolerance on 2L O2. He is SOB with activity with significant orthopnea. He is oriented to self only but follows one step commands consistently with increased time. Pt is non ambulatory at present and requires mod to max assist for sit to stand and stand step transfers per P.T. notes. Pt also has significant performance deficits in grooming, dressing , bathing and toileting requiring mod to total assist with these tasks as described above. Pt is not safe to return to his [facility], and is far below his recent baseline level of function 2 weeks ago. Recommend SNF at d/c for further rehab services. Per chart notes, hospice services are also being considered. Goals Grooming Goal Standby Assistance Dressing Goal Moderate Assistance Toileting Goal Standby Assistance Bathing Goal Minimal Assistance Toilet Transfer Goal Minimal Assistance Patient/Caregiver Education Goal Demonstrate Energy Conservation and Pacing OT-Other Goals Grooming to be done seated in chair. Bathing goal is for seated upper body sponge bath. Pt to initiate pursled lip breathing with min cues when SOB. Days to Meet Goals 14 Frequency of Treatment Frequency Of Treatment Once a Day Treatment Plan OT Treatment Plan ADL Training,Functional Mobility,Patient/Family Education,Discharge Planning Discharge Recommendations OT Discharge Recommendations SNF Rehab Home Equipment Needs to be determined pending progress
[2019-06-10 10:59] LABS: RBC Urine 1-5/HPF (0-5/HPF); Squamous Epithelial Cell Urine 0-1 /HPF (0-5/HPF); Transitional Epi Cells Urine 0-1/HPF (0-5/HPF); WBC Urine 1-5/HPF (0-5/HPF)
[2019-06-10 11:00] LABS: Culture Indicated Urine Specimen Cultured; Hyaline Casts Urine 10-30/LPF
--- NOTE | 2019-06-10 11:00 | PT.IIE ---
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) Weakness (06/09/19) Surgical History (Last Updated 06/09/19 @ 22:32 by FLAVIO Paul) History of appendectomy (Acute) History of cardiac catheterization (Acute) History of colonoscopy (Acute) History of repair of hiatal hernia (Acute) Medical History (Last Updated 06/09/19 @ 22:32 by FLAVIO Paul) Afib (Acute) Cholelithiasis (Acute) Chronic back pain (Acute) Cirrhosis (Acute) Congestive heart failure (Acute) Dementia (Acute) Depression with anxiety (Acute) Hiatal hernia (Acute) History of pacemaker (Acute) Hypertension (Acute) Nephrolithiasis (Acute) Pacemaker (Acute) PTSD (post-traumatic stress disorder) (Acute) Right ventricular failure (Acute) Weakness (Acute) Physical Therapy Inpatient Evaluation/Re-Eval M1 PT/OT-IP Prior Functional Status Start: 06/10/19 12:22 Freq: NEEDED Status: Active Protocol: Document 06/10/19 11:00 AB (Rec: 06/10/19 12:44 AB [id number]) Medical Review Prior Functional Status Medical History Reviewed Yes Communication able to make needs known Mobility and Gait pt stated that he is modified independent with all mobilities and ambulation without AD but occasionally uses either a SPC or a FWW . stated that he calls for assistance if needed Social History Living Arrangements Assisted Living Number of Floors (Floors) One Floor Number of Stairs To Enter/Railing? pt on first floor Home Environment High Toilet,Walk in Shower Home Equipment Front Wheel Walker,Straight Cane,Hand Held Shower,Hospital Bed,Grab Bars Near Toilet, Grab Bars In Shower Employment Status Retired Additional Social History Comment per chart: pt lives at [facility] M2 PT-IP Current Condition Start: 06/10/19 12:22 Freq: NEEDED Status: Active Protocol: Document 06/10/19 11:00 AB (Rec: 06/10/19 12:44 AB [id number]) Physical Therapy Current Condition Current Condition Evaluation Date 06/10/19 Treatment Diagnosis CHF; generalized weakness Onset Date 06/09/19 Precautions Other Precautions falls M3 PT-IP Subjective Start: 06/10/19 12:22 Freq: NEEDED Status: Active Protocol: Document 06/10/19 11:00 AB (Rec: 06/10/19 12:44 AB [id number]) Subjective Physical Therapy Visit Type Type Initial Evaluation Visit Start Time 11:00 Visit Stop Time 11:49 Total Visit Minutes 49 Number of SUPERVISOR ROD PLACING Visits 0 Physical Therapy Visit Comments Patient Comments I am tired Therapy Pain Assessment Pain When Pain Assessed At Rest Pain Present Pain Present Pain Reported Location Bilateral Shoulder Intensity 6 Scale Used Numeric (1 - 10) Upper Back Intensity 6 M4 PT-IP Mobility and Gait Start: 06/10/19 12:22 Freq: NEEDED Status: Active Protocol: Document 06/10/19 11:00 AB (Rec: 06/10/19 12:44 AB [id number]) PT-Bed Mobility Assessment Supine to Sit Supine to Sit Maximum Assistance,Head of Bed Elevated,Bedrails Sit to Supine Sit to Supine Moderate Assistance,1 Person Assistance Scooting Scooting to Edge of Bed Maximum Assistance PT-Transfer Assessment Sit to and From Stand Sit to and from Stand Maximum Assistance,1 Person Assistance,Use of Upper Extremities Equipment Transfer Assistive Device Gait Belt Orthotic/Prosthetic Devices or Brace: No Transfers Transfer Destination Bed,Chair Transfer Technique Stand Step Pivot Transfer Ability Level of Assist Moderate Assistance,1 Person Assistance,Use of Upper Extremities Comments Mobility Comments O2 sat with 1 1/2 L/min O2: 95 %. pt is a mouth breather and requires cues to breath in to the nose. pt completed supine to sit with HOB elevated and pt used bed rail max A and cues. pt was able to sit on EOB CGA. completed sit to stand max A and cues and was able to maintain standing mod A and cues. pt is very shaky during standing, refused to ambulate but ageed to transfer to the chair for NAC to be able to make his bed. pt completed step transfer using FWW mod A and cues. pt was shaky and unsteady but does not want to be assisted. pt also gets easily agitated and confused and requires slow repeated cues. Pt with several skin tears and one skin tear was weeping. informed nurse. student nurse wants pt back in bed. assisted pt back in bed . completed sit to stand from the chair x 2 attempts max A and cues. completed stand step transfer using FWW mod to max A and cues. completed sit to supine mod A for BLE elevation to bed. requires assist for repositioning in bed. call light and table placed within reach. Gait Assessment Comments Gait Comments pt refused to do ambulation PT-Balance Assessment Sitting Balance and Reactions Static Sitting Balance Ability Good Dynamic Sitting Balance Ability Fair Standing Balance and Reactions Static Standing Balance Ability Poor Dynamic Standing Balance Ability Poor Device Used FWW M5 PT-IP Objective Assessments Start: 06/10/19 12:22 Freq: NEEDED Status: Active Protocol: Document 06/10/19 11:00 AB (Rec: 06/10/19 12:44 AB [id number]) Orientation Orientation/Cognition Level of Alertness Alert Orientation Name,Birthday,Situation Safety Awareness Decreased Safety Awareness Memory Description Short Term Impaired,Senior Care Impaired Comments pt is alert but with confusion ; does not know the date and where he is. when asked where he lives, pt said in a motel. Gross Range of Motion Lower Extremity ROM Assessment Within Functional Limits Strength Lower Extremity Strength Assessment Bilaterally Impaired Comments Strength Comments LLE: 3+/5 RLE 3/5 Muscle Tone Muscle Tone WNL Yes M6 PT-IP Treatment Start: 06/10/19 12:22 Freq: NEEDED Status: Active Protocol: Document 06/10/19 11:00 AB (Rec: 06/10/19 12:44 AB [id number]) Physical Therapy Treatment Education Education Provided Safety M7 PT-IP Assessment and Plan Start: 06/10/19 12:22 Freq: NEEDED Status: Active Protocol: Document 06/10/19 11:00 AB (Rec: 06/10/19 12:44 AB [id number]) PT Summary Assessment and Plan Potential Rehabilitation Potential Fair Status of Condition at Evaluation Evolving Summary Impairments Pain,ROM,Strength,Balance, Coordination,Sensation, Cognition,Bed Mobility, Transfers,Gait,Activity Tolerance Assessment Summary pt requiring max A with mobility and has very low activity tolerance. presents with shakiness on BLE during standing. also is (+) SOB with activity. pt will need to have more strength and more independent to be able to go back to [facility]. pt will require SNF rehab to improve mobility. Goals Bed Mobility Goal Contact Guard Assistance Transfer Goal Contact Guard Assistance,Front Wheeled Walker Gait Goal Contact Guard Assistance,Front Wheel Walker Gait Distance 50 Days to Meet Goals 10 Frequency of Treatment Frequency Of Treatment Once a Day Treatment Plan Physical Therapy Treatment Plan Bed Mobility Training,Transfer Training,Gait Training, Therapeutic Exercise,Balance Retraining,Discharge Planning, Hot or Cold Pack,Neuromuscular Re-ed,Coordination Retraining ,Manual Therapy Other Recommendations and Next Treatment ambulation Focus Recommendations To Nursing Amount of Assist Needed 2 Person Assist Discharge Recommendations PT Discharge Recommendations SNF Rehab
--- NOTE | 2019-06-10 11:46 | CM.DANOTE ---
Addendum entered by Parul Byrd R.N. 06/10/19 13:11: Went ahead and faxed today's P.T. note to [facility], stating that skilled is recommended. No case operator at [facility] yet assigned. Addendum entered by Parul Byrd R.N. 06/10/19 12:41: Spoke to Hallie Price, at NH. Patient is not enrolled with their health benefit. She suggested that son can contact [facility], for they can be helpful with any benefits that patient could have. At this point, they do not have patient in their system. Addendum entered by Parul Byrd R.N. 06/10/19 12:23: Left message with Maggi Pirce, manager social services at NH. Patient does not have a social security number on file, but left name, date, and this case operator's phone number. Addendum entered by Parul Byrd R.N. 06/10/19 12:14: Spoke to Jenna in admissions at [facility]. Confirmed that patient had been at their facility in 2017. She did mention that they are contracted with [facility]. Discussed Medicaid potential, and she stated that they do have some Medicaid beds, and their manager social services at the facility can help initiate. She mentioned that it would be beneficial to know if [facility] will allow patient to come back. Let her know that this case operator will reach out to her tomorrow. Son, Violeta, is not feeling that he should return there, for he needs 24 hour care. Went ahead and faxed over clinical information for Jenna to review. He will still need [facility] authorization. Original Note: DCP: Patient is an 84 year old male who admitted yesterday evening to the care of the hospitalist team. PCP: Nisa Jack, PAC at [facility]. Payer: confirmed: [facility]. Patient came to the hospital via ambulance secondary to a ground level fall at [facility] facility where patient currently resides. According to notes, patient has had multiple falls within the last couple of weeks, and was recently at [facility] for the same reason. He has noted increased weakness, and inability to ambulate. Patient has history of cardiac dysrhythmia, as well as cardiomegaly. He just recently had pacemaker put in. Patient also has hepatic issues, and is noted to have some confusion. Spoke to son, Violeta, who resides in [place] and is a teacher. Confirmed that he is DPOA. Mentioned that patient has an ex-wfe, who is disruptive at the facility. He also mentioned that patient has a son and a disabled daughter in the [place] area, and are not able to offer any support. According to son, patient has been declining at the facility for the last couple of weeks. Stated that he has weakened and had more falls. Son is looking at termite inspector care, but stated, he is running out of money, and he has to help pay the balance for patient at [facility] every month. Let son know, that option could be intermediate, since he has ye. Son stated, I don't know if this is the best thing, he may need comfort care at this point. Called [facility], and spoke to Milton. They were going to see patient today, since patient's primary provider ordered P.T. Inquired about [facility] hospice, as far as their turn around time. She encouraged this case operator to call over there. Spoke to Marilou at [facility]. She mentioned that palliative care has about 22 patients in line, and hospice is out for about a week. She encouraged this case operator to fax over clinical information to Linda at [facility], and she can review. She stated that Linda makes the schedule. Spoke with one of the LPNs at [facility]. Rosalinda, who is the manager nursing is not there today, but the [facility] [employer] [employer] stated that they could not accept patient back until conversation is made with manager nursing. His services include med management, and they have been checking on him routinely every couple of hours, but patient continues to be impulsive and falls, for he does not ask for help. He has multiple skin tears post fall. P.T. and O.T. are seeing patient today. Consulted with Megan at O.T, who stated that patient should go to intermediate for now, since he is so weak. Delma, at P.T. will also be seeing patient today. Did inform patient's son that [facility] would cover some intermediate skilled, as long as he is authorized. Will need to see if he is able to do rehab. Son had mentioned that patient has been at [facility] before, will confirm this with Jenna in admissions to see if they are contracted with [facility]. Son had mentioned [facility], so will see about contacting [facility] case operator. P: DCP to follow closely. Will continue to update patient's son on progress, and will consult with P.T. Will need to contact Rosalinda at [facility] as well, tomorrow, and follow up with Linda at [facility]. Will attempt to contact [facility] case operator, and send information over to [place], P.T, O.T, notes. Parul Byrd RN/Front End [employer]ic
--- NOTE | 2019-06-10 12:42 | DIET.PN ---
Dietary Progress Note Assessment: 84y M admitted for weakness, hepatorenal syndrome, end stage liver disease and CHF exacerbation referred to nutrition for chronic PCM and wounds c 1+ edema in bilateral legs. Pt lacto ovo vegetarian, no fish, no meat or poultry, allergic to oranges Pt has [facility] soft diet at [facility] c ONS ensure tid (unclear if pt drinks tid as he reports having a refrigerator full of them) Pt has severe wasting of muscles and fat c severely compromised skin integrity showing signs of fatty acid deficiency, Vit A, Vit C, zinc and PRO deficiency. Pt POs at breakfast were 25%. HT: 162cm WT: 68.1kg (not dry wt) BMI: 25.9 (in accurate r/t fluids on board (ascites/1+ edema bilateral legs/CHF)) Labs: hgb 9.8 L, INR 1.5 H, BUN 59 H, Cr 2.0 H, eGFR 32 L, bili 5 H, Total CK 195 H MNA: 7 maln Rodolfo: 15 Nutrition Diagnosis: Severe Chronic PCM r/t progression of dz (end stage liver dz, CHF) aeb severely compromised skin itegrity, severe loss of muscle and subcutaneous fat stores system wide, weakness and deconditioning, complicated by vegetarian diet and altered metabolism of nutrients. Current reported BMI and wt are not accurate d/t fluid on board (heart/bilateral 1+ edema in legs, ascites) Interventions: [facility] (heart healthy restricts fats, pt needs increased fat for kcal and membrane repair, pt is vegetarian) 2. Recc ONS ensure enlive tid to supplement 63% pro, 58% kcal) 3. Recc MVI plus consider additional Vit A, Vit C, zinc 4. Recc Ke bid for wound healing Diet Order: /[facility] soft EER: 1800kcal, 95g PRO (1.4g/kg maln), 2L fluids Monitoring/Evaluations: wt, POs, ONS acceptance
--- NOTE | 2019-06-10 14:21 | CM.DPC ---
Addendum entered by Parul Byrd R.N. 06/10/19 15:10: Linda from [facility] stated that they can open patient this Saturday at [facility]. Spoke to son, Edson, and gave him updated. Confirmed, his phone number is: [phone]. Gave him some options. He is concerned about him going back to [facility], due to his falls, and he feels that this is not in his dad's best interest, for he will not have 24 hour medical care. Mentioned approximate fees, if patient were to go to half-way on comfort care, emphasizing, that Medicare will cover 5 days of comfort care only. Mentioned skilled rehab option, for Medicare covering 21 days, and can apply to Medicaid. Son is feeling that this may be his dad's best option, at this point. Son feels that his father will continue to have falls if he goes back to [facility]. Confirmed with son that patient is paying approximately $135.00 a day at [facility], which he can barely afford. Discussed [facility], and other facilities. Son stated, he's not familiar with other facilities, but if they can take him, it may be the best option. Let son know that we would discuss patient tomorrow during team rounds, and will still reach out to Rosalinda. Will follow up tomorrow. Addendum entered by Parul Byrd R.N. 06/10/19 14:26: Kristen from admissions just called back and stated that patient is Medicare A primary, straight Medicare. She will update account. Original Note: DCP Cont: Jacquelyn from [facility] had called back, and she stated that they are not his primary insurance, that he has Medicare A. Called them back, and confirmed that he had seen home health billing specialist in [place]. She asked this showcase maker if cardiology number was needed. Let her know that this showcase maker would call main [facility] number. Since there is no showcase maker at [facility] assigned, went ahead and spoke to Nicolle at [facility]. She looked up patient's [place] number and stated, they do not have him as primary, he is under Medicare A, and [place] is secondary. Went ahead and called Kristen in admissions, regarding insurance information, and she stated that she would research it and call this showcase maker at this extension. If patient is under Medicare A, he would have to be here for 3 midnights to qualify for half-way. P: DCP to continue to follow closely. Will await further information from Kristen in admissions, regarding insurance status. Parul Byrd RN/Block Cableman
--- NOTE | 2019-06-10 14:48 | PC.NURSE ---
Skin/LOC: SI couldn't even begin to guess the year. Pt disoriented to time, events, day/date. Reoriented and reviewed how pt ended up in hospital and how he got here. Pt still disoriented this afternoon but did know he was in the hospital and he had fallen. Shown how to use call light several times but he forgets. Does need bed/chair alarm on at all times. From multi falls pt's skin is in poor condition, has scattered bruises across entire body, including back and torso. Elbows are bruised with multi new and old skin tears. Old dressings had old dried bld and had be soaked off with ns. The skin is actually off the rt upper arm area, vaseline gauze over area, non adherent foam, kerlix and a small amt of coban just to hold the dressing in place. Lt arm had several dressings which were soaked off, he has 3 old skin tears which have been steri stripped. Plus 2 new areas. New areas had vaseline gauze, non adherent foam, gauze wrap and a sl amt of coban to keep dressing in place. Pt appears in pain at times with facial wince, tense body tones at times, however he refused pain med each time offered, he doesn't like to take it. Resting quietly at present. Cont w/poc.
--- NOTE | 2019-06-10 15:00 | PM.PN.1 ---
Subjective Subjective Date Patient Seen: 06/10/19 Interval history: The patient is an 84-year-old male with a history of cirrhosis, congestive heart failure, status post pacemaker placement, who lives at [facility]. He has been evaluated in the emergency room multiple times over the past week for frequent falls. Patient most recently was seen at [facility] on 06/07 for fall. He had an extensive workup which was unrevealing. He presented to the emergency department here at [facility] for recurrent falls. He was found to be hypoxic when lying flat. With 40 mg of Lasix and admitted to the hospital. The patient is cachectic, disheveled in appearance, appears to be dehydrated. He was up with physical therapy today and was only able to stand 3 seconds without nearly falling. He continues to be short of breath. He is hypoxic with a room air sat dropping into the 88 percentile range when off oxygen. A his chest x-ray confirms a right pleural effusion moderate in size. Exam Vital Signs (past 8 hours): - 06/10/19 07:54 06/10/19 08:05 06/10/19 14:00 Temperature 97.8 F 97.3 F L Pulse Rate 62 68 66 Respiratory Rate 20 16 16 Blood Pressure 106/68 108/70 Pulse Oximetry 95 99 95 Oxygen Delivery Method Nasal Cannula Oxygen Flow Rate 2 Narrative Exam Narrative: Cachectic ill-appearing male lying in bed Lungs: Decreased breath sounds with crackles in the right bases Cardiac exam irregularly irregular normal S1-S2 with a 2/6 systolic ejection murmur Abdomen: Soft nontender, nondistended, no appreciable hepatosplenomegaly Extremities: No edema Skin exam: Very dry skin throughout, dressing over the right arm, Objective Labs Result Diagrams: 06/09/19 17:30 06/10/19 05:00 Labs: Laboratory Results - last 24 hr 06/09/19 06/09/19 06/09/19 17:30 17:30 17:30 WBC 7.8 RBC 3.08 L Hgb 9.8 L Hct 29.9 L MCV 96.9 MCH 31.7 MCHC 32.7 RDW 16.7 H Plt Count 58 L Total Counted 100 Seg Neutrophils % 84.0 H Band Neutrophils % 4.0 Lymphocytes % (Manual) 4.0 L Atypical Lymphs % 2.0 H Monocytes % (Manual) 6.0 Neutrophils # (Manual) 6864 H RBC Morphology See below Poikilocytosis 2+ H Anisocytosis 1+ H Ovalocytes 1+ H PT INR APTT Sodium 143 Potassium 4.7 Chloride 108 H Carbon Dioxide 23 BUN 56 H Creatinine 1.80 H Estimated GFR 36.1 L BUN/Creatinine Ratio 31.1 H Glucose 107 Calcium 8.9 Magnesium Total Bilirubin 5.0 H AST 46 ALT 25 Alkaline Phosphatase 57 Ammonia Total Creatine Kinase 195 H CK-MB (CK-2) 8.08 H CK-MB (CK-2) Rel Index 4.1 Troponin I < 0.012 B-Natriuretic Peptide 247 H Total Protein 6.4 Albumin 3.6 Globulin 2.8 Albumin/Globulin Ratio 1.3 Procalcitonin Urine Color Urine Appearance Urine pH Ur Specific [place] Urine Protein Urine Glucose (UA) Urine Ketones Urine Occult Blood Urine Nitrate Urine Bilirubin Urine Urobilinogen Ur Leukocyte Esterase Urine RBC Urine WBC Ur Squamous Epith Cells Ur Transition Epith Cell Urine Bacteria Hyaline Casts Ur Culture Indicated? Micro UA Comment Ur Random Sodium Influenza A & B (PCR) 06/09/19 06/09/19 06/09/19 17:30 17:30 17:30 WBC RBC Hgb Hct MCV MCH MCHC RDW Plt Count Total Counted Seg Neutrophils % Band Neutrophils % Lymphocytes % (Manual) Atypical Lymphs % Monocytes % (Manual) Neutrophils # (Manual) RBC Morphology Poikilocytosis Anisocytosis Ovalocytes PT INR APTT Sodium Potassium Chloride Carbon Dioxide BUN Creatinine Estimated GFR BUN/Creatinine Ratio Glucose Calcium Magnesium 2.3 Total Bilirubin AST ALT Alkaline Phosphatase Ammonia Total Creatine Kinase CK-MB (CK-2) CK-MB (CK-2) Rel Index Troponin I B-Natriuretic Peptide Total Protein Albumin Globulin Albumin/Globulin Ratio Procalcitonin 0.10 Urine Color Urine Appearance Urine pH Ur Specific [place] Urine Protein Urine Glucose (UA) Urine Ketones Urine Occult Blood Urine Nitrate Urine Bilirubin Urine Urobilinogen Ur Leukocyte Esterase Urine RBC Urine WBC Ur Squamous Epith Cells Ur Transition Epith Cell Urine Bacteria Hyaline Casts Ur Culture Indicated? Micro UA Comment Ur Random Sodium Influenza A & B (PCR) Negative 06/09/19 06/09/19 06/09/19 17:33 17:38 20:50 WBC RBC Hgb Hct MCV MCH MCHC RDW Plt Count Total Counted Seg Neutrophils % Band Neutrophils % Lymphocytes % (Manual) Atypical Lymphs % Monocytes % (Manual) Neutrophils # (Manual) RBC Morphology Poikilocytosis Anisocytosis Ovalocytes PT 17.1 H INR 1.5 H APTT 34 Sodium Potassium Chloride Carbon Dioxide BUN Creatinine Estimated GFR BUN/Creatinine Ratio Glucose Calcium Magnesium Total Bilirubin AST ALT Alkaline Phosphatase Ammonia 10.0 Total Creatine Kinase CK-MB (CK-2) CK-MB (CK-2) Rel Index Troponin I B-Natriuretic Peptide Total Protein Albumin Globulin Albumin/Globulin Ratio Procalcitonin Urine Color Yellow Urine Appearance Clear Urine pH 5.0 Ur Specific [place] <=1.005 Urine Protein Trace H Urine Glucose (UA) Negative Urine Ketones Negative Urine Occult Blood Negative Urine Nitrate Negative Urine Bilirubin Negative Urine Urobilinogen 0.2 Ur Leukocyte Esterase Trace H Urine RBC 0-1/hpf Urine WBC 0-1/hpf Ur Squamous Epith Cells Ur Transition Epith Cell Urine Bacteria None seen Hyaline Casts Ur Culture Indicated? Specimen cultured Micro UA Comment Ur Random Sodium Influenza A & B (PCR) 06/09/19 06/10/19 06/10/19 20:50 05:00 10:20 WBC RBC Hgb Hct MCV MCH MCHC RDW Plt Count Total Counted Seg Neutrophils % Band Neutrophils % Lymphocytes % (Manual) Atypical Lymphs % Monocytes % (Manual) Neutrophils # (Manual) RBC Morphology Poikilocytosis Anisocytosis Ovalocytes PT INR APTT Sodium 141 Potassium 4.8 Chloride 107 Carbon Dioxide 25 BUN 59 H Creatinine 2.00 H Estimated GFR 32.0 L BUN/Creatinine Ratio 29.5 H Glucose 105 Calcium 9.0 Magnesium Total Bilirubin AST ALT Alkaline Phosphatase Ammonia Total Creatine Kinase CK-MB (CK-2) CK-MB (CK-2) Rel Index Troponin I B-Natriuretic Peptide Total Protein Albumin Globulin Albumin/Globulin Ratio Procalcitonin Urine Color Yellow Urine Appearance Clear Urine pH 5.0 Ur Specific [place] <=1.005 Urine Protein Negative Urine Glucose (UA) Negative Urine Ketones Negative Urine Occult Blood Negative Urine Nitrate Negative Urine Bilirubin Negative Urine Urobilinogen 0.2 Ur Leukocyte Esterase Trace H Urine RBC 1-5/hpf Urine WBC 1-5/hpf Ur Squamous Epith Cells 0-1 /hpf Ur Transition Epith Cell 0-1/hpf Urine Bacteria None seen Hyaline Casts 10-30/lpf Ur Culture Indicated? Specimen cultured Micro UA Comment Not Reportable Ur Random Sodium 9 L Influenza A & B (PCR) Assessment & Plan Assessment & Plan narrative: 1. 84-year-old male admitted to the hospital with acute hypoxic respiratory failure. Suspect this is related to his moderate sized right pleural effusion. He has been on Lasix for some time in addition to spironolactone. However the patient appears to be developing prerenal azotemia/ATN from diuresis. He is very cachectic with severe protein calorie malnutrition as well. At this time would hold Lasix. Will ask for an ultrasound-guided thoracentesis to drain the fluid off the right lung. Hopefully the patient will no longer need oxygen after this procedure is done. 2. End-stage liver disease, with cirrhosis, no significant ascites at this time, no evidence of significant hepatic portal spent systemic encephalopathy 3. Acute kidney injury, likely related to diuresis. Patient received 40 mg of Lasix in the ER. Will hold any further diuresis at this time. Will follow his electrolytes closely. Will defer any nephrotoxin drugs. 4. Persistent atrial fibrillation, rate control, patient is status post pacemaker placement. Pacemaker was interrogated at [facility] and found to be functional 5. Thrombocytopenia, likely related to his end-stage liver disease. Will discontinue heparin at this time. 6. Patient with bitemporal wasting, appears to have severe protein calorie malnutrition. Will ask for nutrition consultation as I suspect this is contributing to his overall weakness. 7. Generalized weakness, multifactorial. Will continue with PT OT. Anticipated the patient will need chcf at discharge as he is unable to return to assisted living. 8. Chronic diastolic heart failure, diuretics discontinue will continue monitor closely. Given the patient's multiple comorbidities in addition to his severe protein calorie malnutrition would consider palliative care or hospice consultation at this time. Quality VTE Deep Vein Thrombosis/Pulmonary Embolism Present on Admission: No
[2019-06-10] MEDS: QUETIAPINE 25 MG TABLET PO (17:08)
[2019-06-10] MEDS: METOPROLOL IR 25 MG TABLET 12.5 MG PO (22:04)
[2019-06-11 05:28] VITALS: BP 118/64; PULSE 62; RESP 15; TEMP 36.5; O2SAT 97
[2019-06-11 05:57] LABS: INR 1.2 (0.9-1.3)
[2019-06-11 06:02] LABS: Alanine Aminotransferase 26 IU/L (21-72); Albumin 3.4 g/dL (3.5-5.0); Albumin Globulin Ratio 1.2 (1.0-2.8); Alkaline Phosphatase 58 U/L (38-126); Aspartate Aminotransferase 35 IU/L (17-59); BUN Creatinine Ratio 32.4 (6-22); Bilirubin Total 4.2 mg/dL (0.2-1.3); Blood Urea Nitrogen 68 mg/dL (9-20); Calcium 9.3 mg/dL (8.4-10.2); Carbon Dioxide 26 mmol/L (22-32); Chloride 107 mmol/L (98-107); Estimated Glomerular Filt Rate 30.2 mL/min (>60); Globulin 2.9 g/dL (1.7-4.1); Glucose 110 mg/dL (80-110); HEMOLYSIS < 15 (0-50); Sodium 140 mmol/L (137-145); Total Protein 6.3 g/dL (6.3-8.2)
[2019-06-11 06:03] LABS: Basophils Absolute Auto 0 /uL (0-100); Basophils Percent Auto 0.4 % (0-2); Eosinophils Absolute Auto 0 /uL (0-450); Eosinophils Percent Auto 0.4 % (2-4); Hematocrit 30.2 % (41-53); Hemoglobin 9.9 g/dL (13.5-17.5); Lymphocytes Absolute Auto 500 /uL (1100-4500); Lymphocytes Percent Auto 10.2 % (25-40); Mean Corpuscular HGB Conc 32.9 % (30-36); Mean Corpuscular Hemoglobin 32.2 PG (26-34); Mean Corpuscular Volume 97.8 fL (80-100); Monocytes Absolute Auto 500 /uL (0-900); Monocytes Percent Auto 11.6 % (3-14); Neutrophils Absolute Auto 3600 /uL (1500-7000); Neutrophils Percent Auto 77.4 % (50-75); Platelet Count 60 X10^3/uL (150-400); Red Blood Cell Count 3.08 X10^6/uL (4.5-5.9); White Blood Cell Count 4.7 X10^3/uL (4.5-11.0)
[2019-06-11 06:07] LABS: Add Manual Diff / Slide Review SLIDE REVIEW
--- NOTE | 2019-06-11 06:53 | PC.NURSE ---
Pt agreed to SCDs, does report leg pain left > right, monitor for tolerance of SCDs. Pt without cardiac symptoms. Water at bedside, pt able to reach for drink. Minimal PO intake overnight, appeared to sleep. Denies need for pain medications. Impaired skin integrity, q1-2hrs turns in bed, pt able to shift weight with cues. Heels floated, feet appear less mottled in past 24hrs. Change dressings to bilat skin tears today using vaseline gauze.
[2019-06-11 08:00] VITALS: BP 100/62; PULSE 62; RESP 18; TEMP 36.2; O2SAT 93
[2019-06-11 08:25] LABS: Anisocytosis 1+; Ovalocytes 1+
[2019-06-11 08:26] LABS: Poikilocytosis 2+
[2019-06-11] MEDS: LACTULOSE 20 GM/30 ML SOLUTION 10 GM PO (09:54)
[2019-06-11] MEDS: METOPROLOL IR 25 MG TABLET 12.5 MG PO ×2 (09:54→20:19)
[2019-06-11] MEDS: FLUoxetine 20 MG CAPSULE 40 MG PO (09:55)
--- NOTE | 2019-06-11 10:09 | CM.DPC ---
Addendum entered by Parul Byrd R.N. 06/11/19 12:49: Spoke to Jenna at [facility], and she stated that they can accept patient tomorrow, if he is discharged. Called son, Nilesh, and he mentioned that [facility] had also tried to call him, and let him know that they could accept patient back if he is on hospice. This pillowcase turner did speak to Linda at [facility] yesterday, who stated that they could open him tomorrow. Son has been reluctant for his dad to go back there due to falls, and had felt that he would be better off in skilled. Encouraged son to reach out to [facility] today to see what level of care that they can provide. At this point, son is struggling with finances for his dad if they need to increase his care needs. Spoke to Yeni, nurse, at [facility], who confirmed tht they can accept him back on hospice, but she is unsure of cost of increasing care needs. Yeni stated that she will have Rosalinda or Yolie call this pillowcase turner to get additional information, and encouraged them to reach out to patient's son as well. Original Note: DCP Cont: Left message with JOSE GUADALUPE Tellez at [facility]. Her phone number is: [phone]. This product planner was wanting to touch base with her. Left a message with Jenna at [facility], as well, to confirm if they can accept patient tomorrow, for he would qualify with his 3 midnight stay. Patient will be having some fluid removed here at hospital today. P: DCP to continue to follow. At this time, plan is for patient to go to [facility], Jenna has received information, and discharge could happen tomorrow as long as he is medically stable, and [facility] can accept. Confirmed yesterday with admission counselor that Medicare A is his primary. Will continue to update Nilesh ferraro. Parul Byrd RN/Environmental Sampling Technician
--- NOTE | 2019-06-11 11:46 | PT-IP ANOTE ---
Pt up to chair with NSG, per RN wait until after lunch.
--- NOTE | 2019-06-11 12:14 | OT.IP.TRT ---
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 Pt on room air this session with O2 sats 92-94 this session. Occupational Therapy Visit Comments Patient/Caregiver Goals pt did not verbalize a goal due to confusion OT Pain Assessment Pain When Pain Assessed After Treatment Pain Present Pain Present Denied Pain M4 OT- IP ADL's Start: 06/10/19 10:09 Freq: Status: Active Protocol: Document 06/11/19 12:14 PJM (Rec: 06/11/19 14:46 PJM [id number]) OT [id number] General Evaluation Self-Feeding Ability Standby Assistance Areas Needing Assistance Cutting Food,Opening Containers Comments OT Self-Feeding Comments poor appetite and pt interested only in protein shake OT ADL-Grooming General Evaluation Grooming Ability Standby Assistance,Minimal Assistance Areas Needing Assistance Combing/Brushing Hair,Face Washing Comments OT Grooming Comments Pt SBA with face washing and min assist to reach back of long hair. OT ADL-Oral Care Comments Oral Care Comments pt declined as lunch to arrive soon OT ADL-Dressing General Eval Lower Body Dressing Ability Moderate Assistance,Maximum Assistance Areas Needing Assistance Socks Assistive Devices Dressing Assistive Devices Duct Maker,Sock Aid Comments OT Dressing Comments mod assist to remove socks with repeat chief and max assist to don with sock aid due to unfamiliar equipment and ankle stiffness M6 OT- IP Functional Cognition Start: 06/10/19 10:09 Freq: Status: Active Protocol: Document 06/11/19 12:14 PJM (Rec: 06/11/19 14:46 [facility] [id number]) Cognitive Factors Limiting Selfcare Function Cognitive Ability Level of Alertness Confusional State Patient Orientation Name Attention Span Ability Capable of Focused Attention Ability to Follow Commands Able to Follow One Step Commands with Increased Time Memory Description Short Term Impaired Safety Awareness Decreased Recall of Precautions Problem Solving Ability Needs Assist to Identify Solutions Executive Function Ability Unable to Make Plans,Unable to Organize Plans,Unable to Remember Details Cognitive Comments Cognitive Assessment Comments Pt has flat affect, needs verbal cues to initiate and complete self care tasks. : M9 OT- IP Assessment and Plan Start: 06/10/19 10:09 Freq: Status: Active Protocol: Document 06/11/19 12:14 PJM (Rec: 06/11/19 14:46 [facility] [id number]) OT Summary Assessment and Plan Potential Rehabilitation Potential Fair Summary OT Impairments Strength,Balance,Functional Cognition,Functional Mobility, Self-Feeding,Grooming,Dressing ,Toileting,Bathing,Toilet Transfers,Shower Transfers Progress Towards Goals Slow Progress due to Medical Issues,Slow Progress due to Activity Tolerance,Slow Progress due to Cognition Assessment Summary Pt needs verbal cues and encouragement to participate in self care tasks due to low activity tolerance. Pt tolerating seated light activity on room air today with O2 sats 92-94. Pt has poor appetite and needs verbal cues to increase oral intake. Recommend SNF at d/c due to current care needs. Per chart notes, pt is being considered for hospice services. Goals Grooming Goal Standby Assistance Dressing Goal Moderate Assistance Toileting Goal Standby Assistance Bathing Goal Minimal Assistance Toilet Transfer Goal Minimal Assistance Patient/Caregiver Education Goal Demonstrate Energy Conservation and Pacing OT-Other Goals Grooming to be done seated in chair. Bathing goal is for seated upper body sponge bath. Pt to initiate pursed lip breathing with min cues when SOB. Days to Meet Goals 13 Frequency of Treatment Frequency Of Treatment Once a Day Treatment Plan OT Treatment Plan ADL Training,Functional Mobility,Patient/Family Education,Discharge Planning Discharge Recommendations OT Discharge Recommendations SNF Rehab Home Equipment Needs to be determined pending progress
[2019-06-11] MEDS: TRAMADOL 50 MG TABLET PO ×2 (13:35→17:26)
[2019-06-11 13:46] VITALS: BP 110/70; PULSE 63; RESP 17; TEMP 36.3; O2SAT 92
--- NOTE | 2019-06-11 14:06 | PT.IPTN ---
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) Weakness (06/09/19) Physical Therapy Treatment Note M2 PT-IP Current Condition Start: 06/10/19 12:22 Freq: NEEDED Status: Active Protocol: Document 06/10/19 11:00 AB (Rec: 06/10/19 12:44 AB [id number]) Physical Therapy Current Condition Current Condition Evaluation Date 06/10/19 Treatment Diagnosis CHF; generalized weakness Onset Date 06/09/19 Precautions Other Precautions falls M3 PT-IP Subjective Start: 06/10/19 12:22 Freq: NEEDED Status: Active Protocol: Document 06/11/19 13:55 AW (Rec: 06/11/19 14:06 AW [id number]) Subjective Physical Therapy Visit Type Type Treatment Note Visit Start Time 13:27 Visit Stop Time 13:52 Total Visit Minutes 25 Number of MEAT HANGER Visits 0 Physical Therapy Visit Comments Patient Comments I am through Therapy Pain Assessment Pain When Pain Assessed At Rest Pain Present Pain Present Pain Reported Location Left Leg Intensity 8 Scale Used Numeric (1 - 10) Pain Behaviors Calling Out,Facial Grimacing, Wincing Pain Management Techniques Re-positioning,Timing of Activity with Medications M4 PT-IP Mobility and Gait Start: 06/10/19 12:22 Freq: NEEDED Status: Active Protocol: Document 06/11/19 13:55 AW (Rec: 06/11/19 14:06 AW [id number]) PT-Bed Mobility Assessment Rolling Type of Rolling Roll to Right,Roll to Left Level of Assist Minimal Assistance Sit to Supine Sit to Supine Moderate Assistance,1 Person Assistance Scooting Scooting to Edge of Bed Minimal Assistance PT-Transfer Assessment Sit to and From Stand Sit to and from Stand Maximum Assistance,1 Person Assistance,Use of Upper Extremities Equipment Transfer Assistive Device Gait Belt,Front Wheeled Walker Orthotic/Prosthetic Devices or Brace: No Transfers Transfer Destination Bed Transfer Technique Stand Step Pivot Transfer Ability Level of Assist Moderate Assistance,1 Person Assistance,Use of Upper Extremities Comments Mobility Comments SpO2 on room air ranged 90-94% during transfer. Pt completed sit to supine with HOB elevated using mod A to elevate his legs. Sit to stand from chair required max A and verbal cues for sequencing. He called out in pain with all mobility. Gait Assessment Comments Gait Comments Pt had been up in chair since morning. He refused ambulation , stating he was too tired. M5 PT-IP Objective Assessments Start: 06/10/19 12:22 Freq: NEEDED Status: Active Protocol: Document 06/10/19 11:00 AB (Rec: 06/10/19 12:44 AB [id number]) Orientation Orientation/Cognition Level of Alertness Alert Orientation Name,Birthday,Situation Safety Awareness Decreased Safety Awareness Memory Description Short Term Impaired,Shelter Impaired Comments pt is alert but with confusion ; does not know the date and where he is. when asked where he lives, pt said in a motel. Gross Range of Motion Lower Extremity ROM Assessment Within Functional Limits Strength Lower Extremity Strength Assessment Bilaterally Impaired Comments Strength Comments LLE: 3+/5 RLE 3/5 Muscle Tone Muscle Tone WNL Yes M6 PT-IP Treatment Start: 06/10/19 12:22 Freq: NEEDED Status: Active Protocol: Document 06/11/19 13:55 AW (Rec: 06/11/19 14:06 AW [id number]) Physical Therapy Treatment Other Treatments Other Treatment Performed Long arc quads in sitting 1x10 reps bilat. Pt unable to fully extend left knee. M7 PT-IP Assessment and Plan Start: 06/10/19 12:22 Freq: NEEDED Status: Active Protocol: Document 06/11/19 13:55 AW (Rec: 06/11/19 14:06 AW [id number]) PT Summary Assessment and Plan Summary Assessment Summary Pt continues to require mod<> max A for mobility. He is unsteady on BLE in standing and requires verbal cues for breathing pattern. Pt insists I am through. Leave me alone with exasperation likely due to pain with all mobility. He continues to be a good candidate for SNF rehab to improve independence for goal of return to [facility]. Goals Bed Mobility Goal Contact Guard Assistance Transfer Goal Contact Guard Assistance,Front Wheeled Walker Gait Goal Contact Guard Assistance,Front Wheel Walker Gait Distance 50 Days to Meet Goals 10 Frequency of Treatment Frequency Of Treatment Once a Day Recommendations To Nursing Amount of Assist Needed 2 Person Assist Discharge Recommendations PT Discharge Recommendations SNF Rehab
--- NOTE | 2019-06-11 15:29 | DI.US.S_ITS ---
PROCEDURE: US CHEST COMPARISON: [facility], CR, XR CHEST 1V, 06/09/2019, 17:43. INDICATIONS: RIGHT PLEURAL EFFUSION FINDINGS: There is a small right pleural effusion, not enough for therapeutic thoracentesis. IMPRESSION: Small right effusion not enough for therapeutic thoracentesis. The result was discussed with Dr. Villarreal. Dictated by: [place] Walter M.D. on 06/11/2019 at 9:59 Approved by: Argentina Walter M.D. on 06/11/2019 at 10:04
--- NOTE | 2019-06-11 16:18 | P.PN_ITS ---
Subjective Subjective Date Patient Seen: 06/11/19 Interval history: The patient is an 84-year-old male who was admitted to the hospital for frequent falls. He was seen at [facility] for falling. Patient has end-stage liver disease, chronic congestive heart failure due to diastolic dysfunction, severe protein calorie malnutrition and generalized weakness. Patient was given Lasix in the emergency room. He was previously on Lasix 20 b.i.d.. Since that time he has had progression of his renal insufficiency. He remains short of breath. Patient was sent down for an ultrasound guided thoracentesis of what was a moderate pleural effusion. There was no evidence of significant fluid in the right lung. He is back in his room. He is very weak. Unsteady on his feet. He is unable to ambulate independently. Exam Vital Signs (past 8 hours): - 06/11/19 13:46 Temperature 97.3 F L Pulse Rate 63 Respiratory Rate 17 Blood Pressure 110/70 Pulse Oximetry 92 Oxygen Delivery Method Nasal Cannula Oxygen Flow Rate 2 Narrative Exam Narrative: Cachectic ill-appearing gentleman HEENT: Bitemporal wasting, sclera icteric, oropharynx with dry mucous members neck is supple Lungs: Decreased breath sounds bilaterally Cardiac exam: Regular rate and rhythm normal S1-S2 Abdomen: Soft and nontender Extremities: No edema Skin exam: Multiple ecchymoses and bruises on the 4 skin is extremely dry Objective Labs Result Diagrams: 06/11/19 05:20 06/11/19 05:20 Labs: Laboratory Results - last 24 hr 06/11/19 06/11/19 06/11/19 05:20 05:20 05:20 WBC 4.7 RBC 3.08 L Hgb 9.9 L Hct 30.2 L MCV 97.8 MCH 32.2 MCHC 32.9 RDW 17.0 H Plt Count 60 L Neut % (Auto) 77.4 H Lymph % (Auto) 10.2 L [place] % (Auto) 11.6 Eos % (Auto) 0.4 L Baso % (Auto) 0.4 Neut # (Auto) 3600 Lymph # (Auto) 500 L [place] # (Auto) 500 Eos # (Auto) 0 Baso # (Auto) 0 RBC Morphology See below Poikilocytosis 2+ H Anisocytosis 1+ H Ovalocytes 1+ H PT 14.0 H INR 1.2 Sodium 140 Potassium 5.0 Chloride 107 Carbon Dioxide 26 BUN 68 H Creatinine 2.10 H Estimated GFR 30.2 L BUN/Creatinine Ratio 32.4 H Glucose 110 Calcium 9.3 Total Bilirubin 4.2 H AST 35 ALT 26 Alkaline Phosphatase 58 Total Protein 6.3 Albumin 3.4 L Globulin 2.9 Albumin/Globulin Ratio 1.2 Assessment & Plan Assessment & Plan narrative: 1. 84-year-old male admitted for generalized weakness. This likely is multifactorial. Patient has severe protein calorie malnutrition. He has bitemporal wasting. While the patient does have underlying end-stage liver disease and chronic renal insufficiency both appear to have been progressing. We are unable to diurese him further given progression of his renal failure. His Lasix has been discontinued. Lactulose is on hold. Discussion with the son indicates he would like his father to go to long-term and perhaps return to his assisted living ultimately. 2. Acute on chronic renal failure, suspect ATN from over diuresis. Diuretics have 3. Chronic diastolic heart failure 4. Atrial fibrillation, persistent not on anticoagulation given his chronic liver disease and elevated INR 5 hypertension, continue metoprolol 6. PTSD 7. Depression, continue prozac The patient has continued failure to thrive. Although he has multiple underlying medical problems I do not believe anyone of the are repairable and or will result in significant improvement in his functional status. Would recommend at this time palliative care versus hospice at the senior care. I understand that his son is not ready to pursue that at this time. In the interim would continue PT OT would hold his diuretics will continue him on oxygen and optimize his nutritional status with plans to discharge to rehab tomorrow to [facility]. Quality VTE Deep Vein Thrombosis/Pulmonary Embolism Present on Admission: No
[2019-06-11 16:29] VITALS: BP 105/53; PULSE 61; RESP 16; TEMP 36.6; O2SAT 95
[2019-06-11] MEDS: QUETIAPINE 25 MG TABLET PO (17:56)
[2019-06-11 20:00] VITALS: BP 124/66; PULSE 83; RESP 16; TEMP 36.5; O2SAT 93
[2019-06-11 20:12] VITALS: BP 124/66; PULSE 69; RESP 20; O2SAT 92
[2019-06-12] VITALS: BP 101/57; PULSE 60; RESP 18; TEMP 36.5; O2SAT 94
[2019-06-12] MEDS: SODIUM CHLORIDE 0.9% FLUSH 10 ML IV (00:14)
[2019-06-12 04:00] VITALS: BP 121/63; PULSE 62; RESP 18; TEMP 37.1; O2SAT 92
[2019-06-12 07:50] VITALS: BP 104/52; PULSE 62; RESP 17; TEMP 36.3; O2SAT 94
--- NOTE | 2019-06-12 09:17 | CM.DPC ---
Addendum entered by Jeanne Tripp LPN 06/12/19 11:03: Have now spoken with Angela and Jenna at [facility] a few times. Pt will need to be picked up here no later than 1330. RN Jenelle does confirm that pt is able to sit up in the bedside chair and as long as 2L of [address] he will be ok for the w/c van transport. Dr. Taylor has been updated: she is putting in snf specific orders now. PASRR has been reviewed. Seroquel is noted and used for dementia management in the home setting. Gracie confirmed that this is all that will be needed for their PASRR process. Slight updates made. Faxed and pt scan and snf packet as per protocal. [facility] Jo-Ann is faxing final d/c orders. Addendum entered by Jeanne Tripp LPN 06/12/19 09:26: DC order is entered now, will await d/c order specifics. Original Note: DCP: continued: Case received, EMR reviewed. Confirmed outcome of questions over insurance coverage: Medicare A only as primary and [place] of [place] and secondary insurance. Dr. Taylor confirms that pt is stable for d/c to [facility] ([facility]) today. Called the facility and spoke with telephone operator receptionist. She stated she did not know Jenna's schedule but that she would let her know to call. Informed her pt was ready today and would need transport. She stated she would pass on the information. Will check in with pt, update his POA son as more is known. [facility]/c orders. Will review PASRR, update prn, fax to [facility] and give to [facility] to scan once final orders received.
--- NOTE | 2019-06-12 09:43 | PT.IPTN ---
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) Weakness (06/09/19) Physical Therapy Treatment Note M2 PT-IP Current Condition Start: 06/10/19 12:22 Freq: NEEDED Status: Active Protocol: Document 06/10/19 11:00 AB (Rec: 06/10/19 12:44 AB [id number]) Physical Therapy Current Condition Current Condition Evaluation Date 06/10/19 Treatment Diagnosis CHF; generalized weakness Onset Date 06/09/19 Precautions Other Precautions falls M3 PT-IP Subjective Start: 06/10/19 12:22 Freq: NEEDED Status: Active Protocol: Document 06/12/19 09:43 AB (Rec: 06/12/19 10:15 AB [id number]) Subjective Physical Therapy Visit Type Type Treatment Note Visit Start Time 09:43 Visit Stop Time 10:01 Total Visit Minutes 18 Number of MANAGER LOAN Visits 0 Physical Therapy Visit Comments Patient Comments pt agreeable to get up Therapy Pain Assessment Pain When Pain Assessed At Rest Pain Present Pain Present Pain Reported Location Left Leg Intensity 10 Pain Management Techniques Modification of Treatment M4 PT-IP Mobility and Gait Start: 06/10/19 12:22 Freq: NEEDED Status: Active Protocol: Document 06/12/19 09:43 AB (Rec: 06/12/19 10:15 AB [id number]) PT-Bed Mobility Assessment Supine to Sit Supine to Sit Minimal Assistance,1 Person Assistance,Head of Bed Elevated Scooting Scooting to Edge of Bed Maximum Assistance PT-Transfer Assessment Sit to and From Stand Sit to and from Stand Maximum Assistance,1 Person Assistance,2 Person Assistance ,Use of Upper Extremities Equipment Transfer Assistive Device Gait Belt,Front Wheeled Walker Orthotic/Prosthetic Devices or Brace: No Transfers Transfer Destination Chair Transfer Technique Stand Step Pivot Transfer Ability Level of Assist Maximum Assistance,1 Person Assistance,2 Person Assistance ,Use of Upper Extremities Comments Mobility Comments pt completed supine to sit with HOB elevated min A and cues. requires increase time to complete task. (+) SOB. Pt required max A to scoot to EOB. pt completed sit to stand max A x 1-2 and max cues . (+) LE shakiness but completed stand step transfer max A x1-2 and max cues. (+) SOB O2 sat 92%. positioned pt on chair. left pt with OT. M5 PT-IP Objective Assessments Start: 06/10/19 12:22 Freq: NEEDED Status: Active Protocol: Document 06/10/19 11:00 AB (Rec: 06/10/19 12:44 AB [id number]) Orientation Orientation/Cognition Level of Alertness Alert Orientation Name,Birthday,Situation Safety Awareness Decreased Safety Awareness Memory Description Short Term Impaired,Group Home Impaired Comments pt is alert but with confusion ; does not know the date and where he is. when asked where he lives, pt said in a motel. Gross Range of Motion Lower Extremity ROM Assessment Within Functional Limits Strength Lower Extremity Strength Assessment Bilaterally Impaired Comments Strength Comments LLE: 3+/5 RLE 3/5 Muscle Tone Muscle Tone WNL Yes M6 PT-IP Treatment Start: 06/10/19 12:22 Freq: NEEDED Status: Active Protocol: Document 06/12/19 09:43 AB (Rec: 06/12/19 10:15 AB [id number]) Physical Therapy Treatment Education Education Provided Safety M7 PT-IP Assessment and Plan Start: 06/10/19 12:22 Freq: NEEDED Status: Active Protocol: Document 06/12/19 09:43 AB (Rec: 06/12/19 10:15 AB [id number]) PT Summary Assessment and Plan Potential Rehabilitation Potential Fair Summary Impairments Pain,ROM,Strength,Balance, Coordination,Sensation, Cognition,Bed Mobility, Transfers,Gait,Activity Tolerance Progress Towards Goals Slow Progress due to Medical Issues,Slow Progress due to Activity Tolerance Assessment Summary pt continues to present with decrease activity tolerance and requires max A x 1-2 and max cues. (+) SOB during activity with O2 sat of 92% after transfer. pt will benefit from SNF rehab to improve strength and mobility. Goals Bed Mobility Goal Contact Guard Assistance Transfer Goal Contact Guard Assistance,Front Wheeled Walker Gait Goal Contact Guard Assistance,Front Wheel Walker Gait Distance 50 Days to Meet Goals 10 Frequency of Treatment Frequency Of Treatment Once a Day Treatment Plan Physical Therapy Treatment Plan Bed Mobility Training,Transfer Training,Gait Training, Therapeutic Exercise,Balance Retraining,Discharge Planning, Hot or Cold Pack,Neuromuscular Re-ed,Coordination Retraining ,Manual Therapy Other Recommendations and Next Treatment ambulation Focus Recommendations To Nursing Amount of Assist Needed 2 Person Assist Discharge Recommendations PT Discharge Recommendations SNF Rehab
[2019-06-12] MEDS: METOPROLOL IR 25 MG TABLET 12.5 MG PO (10:00)
[2019-06-12] MEDS: FLUoxetine 20 MG CAPSULE 40 MG PO (10:00)
[2019-06-12] MEDS: TRAMADOL 50 MG TABLET PO (10:00)
--- NOTE | 2019-06-12 10:22 | OT.IP.TRT ---
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 OT Pain Assessment Pain When Pain Assessed At Rest Pain Present Pain Present Pain Reported Location Left Leg Intensity 10 Scale Used Numeric (1 - 10) Pain Behaviors Facial Grimacing,Holding Area M4 OT- IP ADL's Start: 06/10/19 10:09 Freq: Status: Active Protocol: Document 06/12/19 10:13 CCC (Rec: 06/12/19 10:22 CCC [id number]) OT ADL-Grooming General Evaluation Grooming Ability Standby Assistance,Minimal Assistance Areas Needing Assistance Face Washing Comments OT Grooming Comments SBA while sitting to wash his face with wash cloth. OT ADL-Oral Care General Eval Oral Care Ability Minimal Assistance Devices Oral Care Devices Toothbrush Comments Oral Care Comments Pt needing MOD vc to sequence through task of brushing his teeth. Cue to put toothpaste on toothbrush and actually needing assist to do that task , vc to rinse his mouth out. M5 OT- IP IADL's Start: 06/10/19 10:09 Freq: Status: Active Protocol: Document 06/10/19 10:54 PJM (Rec: 06/10/19 13:31 PJM [id number]) OT-Instrumental Activities of Daily Living Deficits IADL Deficits Identified Deficits Home Safety Awareness Awareness of Need for Assistance at Home Decreased Awareness Ability to Problem Solve Emergency Unable to Problem Solve Situations Medication Management Medication Management Caregiver Administers Medication Management Comments caregivers at [facility] assist Money Management Money Management Caregiver Provides Assistance Money Management Comments son assists Meal Preparation Meal Preparation Caregiver Provides Assist Meal Preparation Comments 3 meals/day provided although pt states he does not attend all meals as he doesn't like the food Wafer Polisher Wafer Polisher Caregiver Provides Assist Driving Driving Comments pt no longer drives M6 OT- IP Functional Cognition Start: 06/10/19 10:09 Freq: Status: Active Protocol: Document 06/12/19 10:13 [facility] (Rec: 06/12/19 10:22 [facility] [id number]) Cognitive Factors Limiting Selfcare Function Cognitive Ability Level of Alertness Confusional State Patient Orientation Name Attention Span Ability Capable of Focused Attention Ability to Follow Commands Able to Follow One Step Commands with Increased Time Memory Description Short Term Impaired Problem Solving Ability Unable to Identify Errors, Needs Assist to Identify Solutions Executive Function Ability Unable to Make Plans,Unable to Organize Plans,Unable to Remember Details Cognitive Comments Cognitive Assessment Comments VC to initiate and sequence through tasks of ADl's. M7 OT- IP Mobility and Balance Start: 06/10/19 10:09 Freq: Status: Active Protocol: Document 06/12/19 10:13 [facility] (Rec: 06/12/19 10:22 [facility] [id number]) OT- Bed Mobility Assessment Supine to Sit Supine to Sit Assist Minimal Assistance OT-Transfer Assessment Sit to and From Stand Sit to and from Stand Maximum Assistance,1 Person Assistance,2 Person Assistance Transfers Transfer Ability Maximum Assistance,2 Person Assistance OT- Gait Assessment Comments Gait Ability Comments DOLORES to help get legs out of the edge of the bed and for trunk, otherwise MAX A x 2 for sit to stand and transfer mainly due to ontiveros of left leg and not putting much weight on his left foot and heavily relies on arms on the FWW. Pt needing assist for balance, guidance of FWW, and MOD vc for safety. OT- Balance Assessment Sitting Balance and Reactions Static Sitting Balance Ability Fair Standing Balance and Reactions Static Standing Balance Ability Poor Dynamic Standing Balance Ability Poor M8 OT- IP Objective Assessments Start: 06/10/19 10:09 Freq: Status: Active Protocol: Document 06/10/19 10:54 PJM (Rec: 06/10/19 13:31 PJM [id number]) OT Gross Range of Motion Upper Extremity Range of Motion Assessment Within Functional Limits OT Strength Upper Extremity Strength Assessment Bilaterally Impaired Hand Brush Painter Strength Hand Dominance Right Comments Strength Comments strength 4-/5 throughout BUE OT- Coordination Assessment Comments Coordination Comments BUE WFL for basic self care OT-Muscle Tone Assessment Muscle Tone WNL Yes OT Sensation Assessment Comments Summary Comments Pt detects lt touch in BUE's; denies deficits Edema Edema Present Edema Comments L elbow and posterior upper arm swollen M9 OT- IP Assessment and Plan Start: 06/10/19 10:09 Freq: Status: Active Protocol: Document 06/12/19 10:13 [facility] (Rec: 06/12/19 10:22 [facility] [id number]) OT Summary Assessment and Plan Potential Rehabilitation Potential Fair Summary OT Impairments Strength,Balance,Functional Cognition,Functional Mobility, Self-Feeding,Grooming,Dressing ,Toileting,Bathing,Toilet Transfers,Shower Transfers Progress Towards Goals Slow Progress due to Medical Issues,Slow Progress due to Activity Tolerance,Slow Progress due to Cognition Assessment Summary Pt's O@ 93% after transfer on room air. Pt able to tolerate transfer today and going to skilled rehab. Discharge Recommendations OT Discharge Recommendations SNF Rehab Home Equipment Needs to be determined pending progress
--- NOTE | 2019-06-12 11:49 | P.DS_ITS ---
History of Present Illness History of Present Illness Date Patient Seen: 06/12/19 Chief complaint: Weakness, falls, skin tear R arm Narrative: Written by Chester MUNIZ: Mr. Edson Lan is an 84-year-old gentleman with a history significant for atrial fibrillation, permanent pacemaker implantation, congestive heart failure, hypertension, liver cirrhosis, dementia, nephrolithiasis and cholelithiasis, depression with anxiety and PTSD and chronic fatigue who presents to the ER for recurrent falls and generalized weakness and inability to stand. The patient wa s previously seen at [facility] on 06/05/2019 and again on 06/07/2019 for similar complaint. Each time the patient was discharged home having undergone an aggressive investigation including a CT of the head, CT of the abdomen and pelvis, abdominal ultrasound and Doppler studies of the right upper extremity and the right lower extremity to rule out DVT and was subsequently discharged back to [facility]. At the time of exam the patient is somnolent and not able to provide only limited information. He denies headaches or dizziness, neck or back pain. Reports no chest pain or palpitations though he has a history of atrial fibrillation. He tells me has no shortness of breath or cough. He denies complaints of abdominal pain, nausea vomiting. He cannot tell me when he last moved his bowels. At baseline the patient is able to ambulate with a cane or walker and now reports he is unable to stand that his legs give out. On upon arrival to ER patient is found to be afebrile with temperature 96.9?, heart rate of 63 in a paced rhythm, blood pressure 115/99, respiratory rate of 22 saturating 94% on room air. Repeat imaging was not completed at [facility]: -CT head: 06/07/2019 finds no acute intracranial findings, cerebral atrophy and chronic microvascular ischemic changes. -CT of the abdomen and pelvis: 06/07/2019 moderate right small left pleural effusions with cardiomegaly a and severe dilation of the right and left atria, distension of the inferior vena cava and hepatic veins consistent with right heart failure, several stones within the gallbladder without evidence of acute cholecystitis or ductal obstruction, mild ascites, right nephrolithiasis, multiple hyperdense left renal cysts consistent with hemorrhagic excess no bowel obstruction, -US abdomen, right upper quadrant: 06/05/2019 nodular liver with echogenic p arenchyma suggestive of cirrhosis measuring 16.9 cm, cholelithiasis without evidence of acute cholecystitis, no biliary dilatation, small ascites. -echocardiogram: 06/06/2019 LV function is described as normal with an EF of 55-60%, severe right ventricular enlargement, severe increased in left atrial, volume index, severe right atrial enlargement, severe tricuspid regurgitation, moderately abnormal heart pressures. Laboratory analysis obtained today includes a white count of 7.8, hemoglobin of 9.8, hematocrit of 29.9 and platelets 58. Electrolytes within normal range however has BUN of 56 and creatinine of 1.8 (creatinine 1.7 on evaluation 3 days ago), EGFR is 36.1. His liver functions include a bilirubin of 5.0, AST of 46, ALT of 25 and a P of 57. He had a total CK of 195 with CK-MB of 4.1 with an index of 4.1 and a negative troponin at less than 0.012 and BNP is 247. His PT is 17.1 with an INR 1.5 with an APTT of 34. Stool guaiac is negative for blood. His 12 lead EKG demonstrates paced rhythm and his chest x-ray finds severe cardiomyopathy with right pleural effusion and right basilar opacity possible atelectasis versus consolidation. The a for mention findings are improvement over prior echo completed 04/23/2019 reporting an EF of 50-55%. Dr. Porter notes When he went flat he developed immediate difficulty breathing, with tachypnea, and his O2 sats decreased to 84% on room air. The hypoxia resolved when he went back to an upright position. Additional testing including procalcitonin and urinalysis are ordered and the patient is admitted to the hospital generalized weakness and exacerbation congestive heart failure. Discharge Providers Provider Date of admission: 06/09/19 20:49 Discharge Date: 06/12/19 Consults: 06/09/19 21:13 Consult to Dietitian, Adult Routine Comment: Reason For Exam: Congestive heart failure, Cirrhosis, CKD 06/09/19 21:23 Consult to Discharge Planning Routine Comment: Consult to Occupational Therapy Evaluate & Treat Comment: General weakness, multiple falls, CHF, Cirrhosis Physician Instructions: Evaluate and treat Consult to Physical Therapy Evaluate & Treat Comment: General weakness, multiple falls, CHF, Cirrhosis Physician Instructions: Evaluate and Treat 06/09/19 22:22 Consult to Hospice Referral Routine Comment: End stage liver failure Discharge provider: Jena Taylor DO Summary Hospital Course Discharge Diagnosis: 1. Generalized weakness and debility, acute on chronic, present on admission. Active. 2. Severe protein calorie malnourishment with failure to thrive, acute on chronic, present on admission. Active. 3. End-stage liver disease, acute on chronic, present on admission. Active. 4. Acute kidney injury on chronic kidney disease, present on admission. Active. 5. Chronic diastolic congestive heart failure, present on admission. Stable. 6. Persistent atrial fibrillation status post pacemaker placement, chronic, present on admission. Stable. 7. Hypertension, chronic, present on admission. Stable. Continue metoprolol 8. PTSD, chronic, present on admission. Stable. 9. Depression, chronic, present on admission. Stable. Hospital Course: 1. Generalized weakness and debility, acute on chronic, present on admission. Active. -This is multifactorial and secondary to severe protein calorie malnutrition from advancing end-stage liver disease and chronic kidney disease. -Continued physical and occupational therapy evaluation and treatment. 2. Severe protein calorie malnourishment with failure to thrive, acute on chronic, present on admission. Active. -BMI 26, however, patient has severely compromised skin integrity, severe loss of muscle and subcutaneous fat stores system wide, weakness and deconditioning, complicated by vegetarian diet and altered metabolism of nutrients. -Secondary to end-stage liver disease and chronic kidney disease. -Consult a dietitian and we appreciate her recommendations. Recommend dietitian consultation at [facility] to continue to facilitate low sodium, high protein and high calorie diet. Of note, patient is Vegan. -The patient has continued to fail to thrive due to his multiple underlying medi alyce comorbidities none of which are repairable and/or will improved significantly to improve his functional status. Recommended palliative care with hospice at [facility], however, patient and his son are not ready pursue to this avenue and would like him to trial rehabilitation. 3. End-stage liver disease, acute on chronic, present on admission. Active. -Unclear etiology but possibly secondary to alcoholic liver cirrhosis. -Cachectic with severe protein calorie malnourishment. -Previous abdominal ultrasound demonstrated trace ascites with nodular liver and echogenic parenchyma. -Initial LFT's elevated bilirubin at 5.0, AST 46, ALT 25 and alkaline phosphatase 57. Ammonia level is 10. Albumin is 3.6. Coagulopathic with an INR 1.5 on no anticoagulants and without evidence of bleeding. -MELD score 23. Referred patient to hospice, however, patient and his son are not ready pursue to this avenue and would like him to trial rehabilitation. -Continued lactulose 10 g daily which was initially held due to degree of emaciation. -Received furosemide 40 mg IV x1 in the ED. Held off on further diuresis due to worsening renal function. Patient has mild generalized anasarca and 3rd spacing and restarted home furosemide with decreased from 40 mg to 20 mg daily which may need to be adjusted outpatient based on volume status and/or renal function. 4. Acute kidney injury on chronic kidney disease, present on admission. Active. -Suspect ATN from over diuresis versus hepatorenal syndrome. -Initial creatinine 1.8. No baseline for comparison. Current creatinine 2.1. -Received furosemide 40 mg IV x1 in the ED. Held off on further diuresis due to worsening renal function. Patient has mild generalized anasarca and 3rd spacing and restarted home furosemide with decreased from 40 mg to 20 mg daily which may need to be adjusted outpatient based on volume status and/or renal function. 5. Chronic diastolic congestive heart failure, present on admission. Stable. -Does not represent acute exacerbation. -Received furosemide 40 mg IV x1 in the ED. Held off on further diuresis due to worsening renal function. Patient has mild generalized anasarca and 3rd spacing and restarted home furosemide with decreased from 40 mg to 20 mg daily which may need to be adjusted outpatient based on volume status and/or renal function. -Continued strict I&O and daily weights. Net - 875 cc. 6. Persistent atrial fibrillation status post pacemaker placement, chronic, present on admission. Stable. -Not on anticoagulation given his chronic liver disease and elevated INR. -Continued metoprolol decreased from home dose of 25 mg twice daily to 6.25 mg twice daily due to low normal blood pressure. Based on blood pressure may need to be discontinued outpatient. 7. Hypertension, chronic, present on admission. Stable. Continue metoprolol -Continued metoprolol decreased from 25 mg twice daily to 6.25 mg twice daily due to low normal blood pressure. Based on blood pressure may need to be discontinued outpatient. 8. PTSD, chronic, present on admission. Stable. -Continued Seroquel 25 mg daily at bedtime for sleep maintenance. 9. Depression, chronic, present on admission. Stable. -Continued fluoxetine at decreased dose from 40 mg to 20 mg due to risk of arrhythmia from decreased hepatic metabolism and QTc prolongation. 10. 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 Stable. -Continued Seroquel 25 mg daily at bedtime for sleep maintenance. Exam Vital Signs (past 8 hours): - 06/12/19 04:00 06/12/19 07:50 Temperature 98.8 F 97.3 F L Pulse Rate 62 62 Respiratory Rate 18 17 Blood Pressure 121/63 104/52 L Pulse Oximetry 92 94 Oxygen Delivery Method Nasal Cannula Oxygen Flow Rate 2 Narrative Exam Narrative: General: Elderly male sitting in bedside chair and in no acute distress, emaciated, cachectic, with severe whole-body muscle wasting, mild dementia but appropriately interactive. HEENT: Normocephalic, atraumatic. External ears without defect. Pupils equal, round, and reactive to light. Icteric sclerae, moist conjunctivae, and no lid lag. Dry oral mucosa. Bitemporal muscle wasting. Neck: Full range of motion. No jugular venous distension. No lymphadenopathy or thyromegaly. Cardiovascular: Regular rate and rhythm without murmurs, rubs, or gallops appreciated. Pulmonary: Diminished throughout but clear to auscultation bilaterally with bibasilar crackles. No wheezes, or rhonchi. Normal respiratory effort with no use of accessory muscles. Abdomen: Soft, scaphoid, bowel sounds present, nontender, nondistended. No hepatosplenomegaly or masses appreciated. Extremities: No clubbing or cyanosis. Generalized mild anasarca. Skin: Severely dry skin; no rash, ulcers, or subcutaneous nodules appreciated. Skin breakdown and skin tears scattered on body. Neurological: Cranial nerves grossly intact. Significant generalized weakness and debility. Psychiatric: Normal mood and affect. Appears alert and oriented to person, pl [address], and time. Mild dementia at baseline with short-term recall deficit. Objective Labs Result Diagrams: 06/11/19 05:20 06/12/19 12:37 Discharge Plan [facility]: Burrer Mark[facility] Axle Labs: CMP in 2-3 days Discharge Med Rec/Prescriptions Prescriptions: New furosemide 20 mg tablet 20 mg PO DAILY Qty: 30 RF: 0 Continued acetaminophen 325 mg Tablet 650 mg PO QID PRN (Reason: pain) RF: 0 albuterol sulfate 2.5 mg /3 mL (0.083 %) Solution For Nebulization 2.5 mg INHALATION PRN PRN (Reason: Shortness Of Breath) RF: 0 cyanocobalamin (vitamin B-12) [Vitamin B-12] 1,000 mcg Tablet 1,000 mcg PO DAILY RF: 0 tramadol 50 mg Tablet 50 mg PO Q6H PRN (Reason: Pain, Moderate) RF: 0 tramadol 50 mg Tablet 100 mg PO Q6H PRN (Reason: Pain, Severe) RF: 0 multivitamin with minerals Tablet 1 tab PO DAILY RF: 0 Ensure Liquid 1 ea PO TID RF: 0 lactulose 10 gram/15 mL Solution 10 g PO DAILY RF: 0 quetiapine 25 mg Tablet 25 mg PO QPM Qty: 30 RF: 0 Changed fluoxetine 40 mg Capsule 20 mg PO DAILY Qty: 0 RF: 0 metoprolol tartrate 25 mg Tablet 6.25 mg PO BID Qty: 0 RF: 0 Discontinued potassium chloride 20 mEq Tablet,Er Particles/Crystals 10 meq PO DAILY RF: 0 furosemide 20 mg Tablet 20 mg PO DAILY RF: 0 Discharge Health Status Brief summary of current health status: Edson Miller is an 84-year-old male who was admitted to the hospital for frequent falls. He was seen at [facility] for [facility]. Patient has end-stage liver disease, chronic congestive heart failure due to diastolic dysfunction, severe protein calorie malnutrition and generalized weakness and recommended hospice referral, however, the patient and his son would like him to trial rehabilitation. If he continues to decline despite trial of rehabilitation would recommend hospice at that time. Patient requires a low-sodium, high-calorie, high-protein diet and is vegan, therefore, received a dietitian consultation and recommended produce field merchandiser consult at SNF. Decreased several medications including fluoxetine (due to risk of decreased metabolism and QTc prolongation), metoprolol due to low normal blood pressures, and furosemide (due to possible over diurese which may need to be adjusted in future). Provider Discharge Instructions Diet: Diet as Tolerated and Low-sodium Diet comment: High protein/calorie, ensure with all meals Activity: Activity as tolerated with forward wheeled walker and physical and occupational therapy Oxygen: 2L as needed to keep sats 88-92% Special Rehabilitation Services Rehab type: Physical therapy and Occupational therapy Discharges patient from system. Discharge Date/Time: 06/12/19 13:43 Quality VTE Deep Vein Thrombosis/Pulmonary Embolism Present on Admission: No
[2019-06-12 11:55] VITALS: BP 105/59; PULSE 69; RESP 16; TEMP 37.1; O2SAT 86
--- NOTE | 2019-06-12 12:31 | PC.NURSE ---
Called report to Lv BRUCE at [facility]. Gave full report and answered all questions.
[2019-06-12 12:35] VITALS: O2SAT 94
--- NOTE | 2019-06-12 12:59 | PC.NURSE ---
Wallet returned to Pt. Dressing replaced to left forearm.
[2019-06-12 13:00] LABS: Alanine Aminotransferase 26 IU/L (21-72); Albumin 3.6 g/dL (3.5-5.0); Albumin Globulin Ratio 1.3 (1.0-2.8); Alkaline Phosphatase 58 U/L (38-126); Aspartate Aminotransferase 31 IU/L (17-59); BUN Creatinine Ratio 32.9 (6-22); Bilirubin Total 4.1 mg/dL (0.2-1.3); Blood Urea Nitrogen 69 mg/dL (9-20); Calcium 9.2 mg/dL (8.4-10.2); Carbon Dioxide 22 mmol/L (22-32); Chloride 107 mmol/L (98-107); Estimated Glomerular Filt Rate 30.2 mL/min (>60); Globulin 2.8 g/dL (1.7-4.1); Glucose 126 mg/dL (80-110); HEMOLYSIS < 15 (0-50); Sodium 143 mmol/L (137-145); Total Protein 6.4 g/dL (6.3-8.2)
--- NOTE | 2019-06-12 13:42 | PC.NURSE ---
Pt gown and brief changed. Belongings packed up and Pt out via w/c by [facility] to [facility] with all belongings and discharge packet.
--- NOTE | 2019-06-15 12:04 | CM.DPC ---
DCP Cont: Faxed discharge summary to [facility] at fax # [phone]. Fax confirmation scanned in. Jo-Ann Daniel, [facility] Conveyor Tender
== END 2019-06-12 13:43 | DRG 441 ==
LOC: ED 20:27 → AC 22:30
PROVIDERS: Emergency Medicine; Internal Medicine; Admitting Provider Nurse Practitioner Adult Health; Emergency Provider Emergency Medicine; Visit Provider Nurse Practitioner Adult Health
DX: K72.90 Hepatic failure, unspecified without coma (principal); K76.7 Hepatorenal syndrome; J96.01 Acute respiratory failure with hypoxia; E43 Unspecified severe protein-calorie malnutrition; R18.8 Other ascites; I50.32 Chronic diastolic (congestive) heart failure; J91.8 Pleural effusion in other conditions classified elsewhere; I51.7 Cardiomegaly; Z95.0 Presence of cardiac pacemaker; I48.91 Unspecified atrial fibrillation; R53.1 Weakness; R40.0 Somnolence; R40.2133 Coma scale, eyes open, to sound, at hospital admission; R40.2363 Coma scale, best motor response, obeys commands, at hospital admission; R40.2243 Coma scale, best verbal response, confused conversation, at hospital admission; D69.59 Other secondary thrombocytopenia
CPT/HCPCS: 36415; 71045; 73590; 76604; 80048; 80053; 81001; 82140; 82550; 82553; 83735; 83880; 84145; 84300; 84484; 85025; 85610; 85730; 87077; 87086; 87186; 87400; 87502; 93005; 94760; 94762; 96374; 97110; 97162; 97165; 97530; 97535; 99284; 99285; J1644; J1940